=== PATIENT | female | born 1975 | race Caucasian/White ===

== ENCOUNTER 2018-09-25 14:51 | Emergency (ER) | payer SELFPAY ==
[2018-09-25 14:57] VITALS: BP 111/87; PULSE 121; RESP 22; TEMP 36.6; O2SAT 100
[2018-09-25] MEDS: Normal Saline 1,000 ML 1000 ML IV ×2 (15:10→16:24)
[2018-09-25] MEDS: Ondansetron O.D.T. 4 MG TABEF PO ×2 (15:18→18:08)
[2018-09-25 15:39] LABS: Abs Immature Grans 0.02 k/cumm (0.0-0.09); Absolute Basophil Count 0.02 k/cumm (0.0-0.2); Absolute Lymphocyte Count 0.24 k/cumm (1.2-3.4); Absolute Monocyte Count 0.25 k/cumm (0.11-0.7); Absolute Neutrophil Count 7.52 k/cumm (1.2-6.7); Basophils % 0.2; HCT 49.2 % (36.0-46.0); HGB 16.6 g/dL (12.0-15.5); Immature Grans % 0.2; Mean Corp. HGB Concentration 33.7 g/dL (32.0-36.0); Mean Corpuscular Hemoglobin 32.1 pg (27.0-33.0); Mean Corpuscular Volume 95.2 fL (80-95); Mean Platelet Volume 10.6 fL (8.0-11.0); Monocytes % 3.1; Neutrophils % 93.5; Platelet Count 368 x1000/uL (130-400); RBC 5.17 m/cumm (4.00-5.20); RBC Distribution Width 12.7 % (11.7-14.6); White Blood Cell Count 8.05 k/cumm (4.4-10.8)
--- NOTE | 2018-09-25 16:00 | ED.GENADUL_ITS ---
Discharge Plan Disposition Patient Disposition: HOME Condition: Stable Discharge Details Chief Complaint: Nausea/Vomit/Diar Clinical Impression: Nausea and vomiting Primary Care Provider: Pat Mejias ED Provider: Aureliano Ruelas Home Meds and New Rx's Prescriptions: New promethazine 25 mg tablet 25 mg PO Q6H PRN (Reason: nausea and vomiting) Qty: 30 RF: 0 ondansetron 4 mg tablet,disintegrating 4 mg PO TID PRN (Reason: nausea and vomiting) 5 Days Qty: 30 RF: 0 Continued ProAir HFA 8.5 GM HFA aerosol inhaler 2 puff Inhalation Q4H PRN PRNQty: 1 RF: 3 arm brace [Wrist Brace Medium] 1 EACH misc 1 ea Miscellaneous DAILY Qty: 1 RF: 0 Discharge Instructions Instructions: Acute Nausea and Vomiting (ED) Additional Instructions: If you have nausea/vomit take zofran. IF after an hour you still have nausea/vomit try taking the phenergan if symptoms continue by the end of the week follow up with your primary care provider return to the emergency department for chest pain, abdominal pain or persistent vomit return to the emergency department Medical Decision Making 43 yo female comes in with complaint of n/v/d since around 3am this morning. Denies recent travel, no abdominal pain. She was given zofran prior to my exam and now her nausea is better and is tolerating PO. She has no abdominal tenderness or distention on exam so do not feel imaging to evaluate for sbo, cholecystitis or other surgical pathology indicated. Has no chest pain or pressure so do not feel workup for acs indicated. Will monitor and evaluate for dehydration and electrolyte abnormalities labs initially showed anion gap acidosis with lurdes that was likely from dehydration, was given IVF and repeat metabolic panel showed improved anion gap and she is now tolerating PO. Still has no abdominal ttenderness or distention so do not feel imaging indicated. ADvised f/u with pcp and return precautions given Differential Diagnosis food related illness, viral illness, sbo Lab Data Lab results reviewed: Yes I reviewed the patient's lab results. HPI General Mode of arrival: ambulatory . Date/Time Provider Initiated Documentation: 09/25/18 15:15 . Limitations to Documentation: no limitations . Information obtained by: patient . History of Present Illness 43 year old F presents to the emergency department with the chief complaint of n/v/d, described as moderate, with intensity rated at 5. Quality is described as other (cramping), Patient started experiencing this day(s) (1) and it has been constant. No relieving factors improve symptom(s), No exacerbating factors reported . Patient notes no other symptoms.. Patient did receive the following treatments prior to arrival, none Related Data Home Medications Medication Instructions Recorded Confirmed ProAir HFA 2 puff INHALATION Q4H PRN PRN #1 08/07/17 09/25/18 inhaler arm brace [Wrist Brace Medium] #1 ea 09/21/17 ondansetron 4 mg PO TID PRN 5 Days #30 tab 09/25/18 promethazine 25 mg PO Q6H PRN #30 tab 09/25/18 Previous Rx's Medication Instructions Recorded arm brace [Wrist Brace Medium] #1 ea 09/21/17 ondansetron 4 mg PO TID PRN 5 Days #30 tab 09/25/18 promethazine 25 mg PO Q6H PRN #30 tab 09/25/18 Allergies Allergy/AdvReac Type Severity Reaction Status Date / Time lamotrigine Allergy Severe Skin Rash Unverified 09/25/18 15:02 Penicillins Allergy Unknown Hives Unverified 11/06/17 12:15 General Stated Complaint: Nausea/Vomit/Diar BRIDGET: 3 Review of Systems Review of Systems All systems reviewed & are unremarkable except as noted in HPI and below Constitutional Denies chills, Denies fever(s) and Denies weakness ENT Denies change in voice Cardiovascular Denies chest pain and Denies dyspnea Respiratory Denies cough and Denies dyspnea Gastrointestinal Denies abdominal pain Genitourinary Denies dysuria Integumentary/Breasts Denies rash Neurologic Denies weakness Psychiatric Denies depression [facility] Medical History Depression Surgical History Ligation of fallopian tube Family History Mother No problems noted. Father Diabetes Sister Personal history of malignant neoplasm Grandmother No problems noted. Other Alcohol abuse Social History Smoking/Tobacco Use Status: Current every day Exam Const General: no acute distress Orientation: alert HENMT Head: normal to inspection Ears: external ears normal General nose exam: external nose normal Mouth: moist mucous membranes Eyes General: appearance normal, both eyes and all related structures Neck Neck: normal visual inspection Resp Effort & Inspection: normal respiratory effort and able to speak in complete sentences Cardio Rate: regular rate GI Palpation: soft Skin General skin exam: no rashes or lesions noted Neuro General: alert and oriented x3 Extrem General: normal to inspection Psych Mental Status: mental status grossly normal Course Vital Signs Temperature 36.6 C 09/25/18 14:57 Pulse 121 H 09/25/18 14:57 Respiratory Rate 22 09/25/18 14:57 Blood Pressure 111/87 09/25/18 14:57 Pulse Oximetry 100 09/25/18 14:57 Temperature 36.6 C 09/25/18 14:57 Temperature Source Temporal Artery Scan 09/25/18 14:57 Pulse 121 H 09/25/18 14:57 Respiratory Rate 22 09/25/18 14:57 Respiratory Effort Non-Labored 09/25/18 15:01 Blood Pressure 111/87 09/25/18 14:57 Blood Pressure Position Sitting 09/25/18 14:57 Pulse Oximetry 100 09/25/18 14:57 Oxygen Delivery Method Room Air 09/25/18 14:57 Oxygen Flow Rate 0 09/25/18 14:57 Pain Level 7 09/25/18 14:57 Lab/Test Results Lab/Test Results: Laboratory Tests Range/Units 09/25/18 14:10 WBC (4.4-10.8) k/cumm 8.05 RBC (4.00-5.20) m/cumm 5.17 Hgb (12.0-15.5) g/dL 16.6 H Hct (36.0-46.0) % 49.2 H MCV (80-95) fL 95.2 H MCH (27.0-33.0) pg 32.1 MCHC (32.0-36.0) g/dL 33.7 RDW (11.7-14.6) % 12.7 Plt Count (130-400) x1000/uL 368 MPV (8.0-11.0) fL 10.6 Immature Gran % 0.2 Neutrophils % 93.5 Lymphocytes % 3.0 Monocytes % 3.1 Eosinophils % 0.0 Basophils % 0.2 Absolute Neutrophils (1.2-6.7) k/cumm 7.52 H Absolute Lymphocytes (1.2-3.4) k/cumm 0.24 L Absolute Monocytes (0.11-0.7) k/cumm 0.25 Absolute Eosinophils (0.0-0.7) k/cumm 0.00 Absolute Basophils (0.0-0.2) k/cumm 0.02
[2018-09-25 16:02] LABS: ALT 23 U/L (12-78); AST 21 U/L (15-37); Albumin 3.9 g/dL (3.4-5.0); Alkaline Phosphatase 65 U/L (46-116); Anion Gap 16.3 mmol/L (3-11); BUN 22 mg/dL (7-18); Bilirubin, Total 1.8 mg/dL (0.2-1.0); CO2 23.7 mmol/L (21.0-32.0); CREATININE 1.84 mg/dL (0.55-1.02); Chloride 95 mmol/L (98-107); Estimated GFR 29.66 (mL/min/1.73m2); Glucose 137 mg/dL (70-100); Lipase 47 U/L (73-393); Potassium 4.4 mmol/L (3.5-5.1); Sodium 135 mmol/L (136-145)
[2018-09-25 16:19] LABS: Calcium 9.8 mg/dL (8.5-10.1)
[2018-09-25 17:41] LABS: Anion Gap 10.6 mmol/L (3-11); BUN 20 mg/dL (7-18); CO2 25.4 mmol/L (21.0-32.0); CREATININE 1.54 mg/dL (0.55-1.02); Calcium 7.8 mg/dL (8.5-10.1); Chloride 102 mmol/L (98-107); Estimated GFR 36.43 (mL/min/1.73m2); Glucose 107 mg/dL (70-100); Potassium 4.3 mmol/L (3.5-5.1); Sodium 138 mmol/L (136-145)
[2018-09-25] MEDS: Promethazine 25 MG TAB PO (18:09)
[2018-09-25 18:17] VITALS: BP 123/72; PULSE 92; RESP 18; TEMP 36.7; O2SAT 99
== END 2018-09-25 18:20 | disposition home or self-care (01) ==
PROVIDERS: Emergency Provider Emergency Medicine; PCP Nurse Practitioner Family
DX: R11.2 Nausea with vomiting, unspecified (principal)
CPT/HCPCS: 36415; 80048; 80053; 83690; 96361; 96365; 99284; 85025

== ENCOUNTER 2019-05-13 07:15 | Emergency (ER) | payer OTHER, SELFPAY ==
[2019-05-13] VITALS (17 sets, daily range): BP systolic 85–107; BP diastolic 47–72; PULSE 85–110; RESP 14–18; TEMP 36.3–37.5; O2SAT 95–99
[2019-05-13] MEDS: Ketorolac 30 MG/ML VIAL IVP (07:41)
[2019-05-13] MEDS: Normal Saline 1,000 ML 1000 ML IV ×2 (07:41→08:20)
--- NOTE | 2019-05-13 07:41 | ED.GENADUL_ITS ---
Discharge Plan Disposition Patient Disposition: HOME Condition: Improving Discharge Details Chief Complaint: GenMedical Clinical Impression: Vomiting Primary Care Provider: Pat Mejias ED Provider: Charanjit Irizarry Home Meds and New Rx's Prescriptions: New ondansetron HCl [Zofran] 4 mg tablet 4 mg PO QID PRN (Reason: Nausea) Qty: 10 RF: 0 Continued ProAir HFA 8.5 GM HFA aerosol inhaler 2 puff Inhalation Q4H PRN PRNQty: 1 RF: 3 (DME) arm brace [Wrist Brace Medium] 1 EACH misc 1 ea Miscellaneous DAILY Qty: 1 RF: 0 promethazine 25 mg tablet 25 mg PO Q6H PRN (Reason: nausea and vomiting) Qty: 30 RF: 0 Discharge Instructions Instructions: Acute Nausea and Vomiting (ED) Additional Instructions: Home to rest today. Small, frequent sips of fluids and/or popsicles so that she may maintain hydration. May use the prescribed Zofran if needed for nausea. Slowly progress diet beginning with bland foods. Return if you develop high fever, persistent vomiting, or any other acute concerns. May use Tylenol if needed for aches and pains. Medical Decision Making 43-year-old female presents from home with hours of nausea, vomiting, poor tolerance of p.o., feeling dehydrated, now with associated frontal headache. She has not had a fever, denies travel or suspicious food contacts. She states her boyfriend has a head cold. She is anxious, dehydrated in appearance, mildly tachycardic with otherwise normal vital signs. Her differential diagnosis would include a viral syndrome, cyclic vomiting, she does have a history of migraine headaches. Must exclude intracranial hemorrhage or mass. Patient referred for CT scan of the head, underwent laboratory testing, received parenteral fluids and medications. Labs are unremarkable for acute process. CT head without acute intracranial f indings and reviewed with Dr Reyes. Patient subjectively better and improving with ability to take po. Consistent with probable viral illness/abdominal migraine. She is improving with treatment for same. She will require antibiotic for home I believe and I will prescribe her Zofran to use as needed. She is stable for discharge outpatient trial at this time. She does understand return precautions which I reviewed with her. Lab Data Lab results reviewed: Yes I reviewed the patient's lab results. Labs: Laboratory Results - last 24 hr 05/13/19 05/13/19 07:40 07:40 WBC 8.76 RBC 4.49 Hgb 14.5 Hct 43.0 MCV 95.8 H MCH 32.3 MCHC 33.7 RDW 12.4 Plt Count 451 H MPV 9.7 Immature Gran % 0.2 Neutrophils % 86.8 Lymphocytes % 6.3 Monocytes % 5.1 Eosinophils % 1.1 Basophils % 0.5 Absolute Neutrophils 7.60 H Absolute Lymphocytes 0.55 L Absolute Monocytes 0.45 Absolute Eosinophils 0.10 Absolute Basophils 0.04 Sodium 140 Potassium 3.8 Chloride 102 Carbon Dioxide 27.2 Anion Gap 10.8 BUN 6 L Creatinine 1.13 H Estimated GFR/1.73 m2 52.07 Glucose 107 H Calcium 9.2 Magnesium 1.8 Total Bilirubin 0.8 AST 24 ALT 33 Alkaline Phosphatase 66 Total Protein 8.1 Albumin 4.1 Lipase 107 HPI General Mode of arrival: ambulatory . Date/Time Provider Initiated Documentation: 05/13/19 07:24 . Limitations to Documentation: no limitations . Information obtained by: patient . History of Present Illness 43 year old F presents to the emergency department with the chief complaint of Nausea and vomiting with feeling of dehydration and headache for hours , Quality is described as dull and constant, and is localized to the head. Patient reports no radiation. Patient started experiencing this hour(s) and it has been constant. Eating worsens symptoms . Patient notes headaches, loss of appetite, malaise and nausea/vomiting; denies shortness of breath. Patient did receive the following treatments prior to arrival, none Related Data Home Medications Medication Instructions Recorded Confirmed ProAir HFA 2 puff INHALATION Q4H PRN PRN #1 08/07/17 09/25/18 inhaler arm brace [Wrist Brace Medium] #1 ea 09/21/17 promethazine 25 mg PO Q6H PRN #30 tab 09/25/18 ondansetron HCl [Zofran] 4 mg PO QID PRN #10 tab 05/13/19 Previous Rx's Medication Instructions Recorded arm brace [Wrist Brace Medium] #1 ea 09/21/17 promethazine 25 mg PO Q6H PRN #30 tab 09/25/18 ondansetron HCl [Zofran] 4 mg PO QID PRN #10 tab 09/23/19 Allergies Allergy/AdvReac Type Severity Reaction Status Date / Time lamotrigine Allergy Severe Skin Rash Unverified 05/13/19 07:23 Penicillins Allergy Unknown Hives Unverified 05/13/19 07:23 General Stated Complaint: GenMedical BRIDGET: 3 Review of Systems Review of Systems Narrative: 6 systems reviewed otherwise negative [facility] Medical History Depression Surgical History Ligation of fallopian tube Family History Mother No problems noted. Father Diabetes Sister Personal history of malignant neoplasm Grandmother No problems noted. Other Alcohol abuse Social History Smoking/Tobacco Use Status: Current every day Tobacco Type: cigarettes Alcohol Intake: current Alcohol Intake frequency: a few times a week Drug use: Occasionally Substance use type: marijuana Do you feel safe at home: Yes Do you feel safe in your relationship?: Yes Exam Narrative Exam Narrative: GEN: awake, alert, oriented 3. Pleasant, well groomed, in mild distress. HEAD: Normocephalic, atraumatic ENT: Mucous membranes dry, oropharynx unremarkable, External ear exam unremarkable EYES: PERRL, EOMI NECK: Full ROM, no FELICIA, no menigismus CHEST/RESP: Nontender, clear to auscultation bilateral, no wheeze/rhonchi/rales CARDIOVASCULAR: Regular, tachycardic, no murmur, rub dean. 2+ Rad pulse bilateral ABDOMEN: Soft, nontender, no mass. +Bowel sounds EXT: Full ROM, no edema, no rash Neuro: Grossly normal neurologic exam, conversant, interactive. Psych: Speech fluent, thoughts congruent, affect anxious Course Vital Signs Vital signs: Vital Signs Temperature 37.5 C 05/13/19 07:19 Pulse 110 H 05/13/19 07:19 Respiratory Rate 18 05/13/19 07:19 Blood Pressure 107/72 05/13/19 07:19 Pulse Oximetry 99 05/13/19 07:19 Temperature 37.5 C 05/13/19 07:19 Temperature Source Skin 05/13/19 07:19 Pulse 110 H 09/23/19 07:19 Respiratory Rate 18 05/13/19 07:19 Respiratory Effort Non-Labored 05/13/19 07:22 Blood Pressure 107/72 05/13/19 07:19 Blood Pressure Position Sitting 05/13/19 07:19 Pulse Oximetry 99 05/13/19 07:19 Oxygen Delivery Method Room Air 05/13/19 07:19 Oxygen Flow Rate 0 05/13/19 07:19
[2019-05-13] MEDS: Ondansetron 4 MG/2 ML VIAL IVP (07:42)
[2019-05-13 07:51] LABS: Abs Immature Grans 0.02 k/cumm (0.0-0.09); Absolute Basophil Count 0.04 k/cumm (0.0-0.2); Absolute Lymphocyte Count 0.55 k/cumm (1.2-3.4); Absolute Monocyte Count 0.45 k/cumm (0.11-0.7); Basophils % 0.5; Eosinophils % 1.1; HGB 14.5 g/dL (12.0-15.5); Immature Grans % 0.2; Lymphocytes % 6.3; Mean Corp. HGB Concentration 33.7 g/dL (32.0-36.0); Mean Corpuscular Hemoglobin 32.3 pg (27.0-33.0); Mean Corpuscular Volume 95.8 fL (80-95); Mean Platelet Volume 9.7 fL (8.0-11.0); Monocytes % 5.1; Neutrophils % 86.8; Platelet Count 451 x1000/uL (130-400); RBC 4.49 m/cumm (4.00-5.20); RBC Distribution Width 12.4 % (11.7-14.6); White Blood Cell Count 8.76 k/cumm (4.4-10.8)
--- NOTE | 2019-05-13 08:05 | DI.CT_ITS ---
EXAM: CT HEAD WO CLINICAL HISTORY: SÁNCHEZ, vomiting. TECHNIQUE: The exam was performed according to the usual protocol without contrast. FINDINGS: There is no evidence of an intra or extra-axial hemorrhage. There is no mass. The garcia-white matter d ifferentiation is maintained. The ventricles are unremarkable. There is no evidence of a skull frac ture. The paranasal sinuses are intact. There is no evidence of a mastoid effusion. IMPRESSION: There is no evidence of an acute intra cerebral abnormality.
[2019-05-13 08:13] LABS: ALT 33 U/L (14-59); AST 24 U/L (15-37); Albumin 4.1 g/dL (3.4-5.0); Alkaline Phosphatase 66 U/L (46-116); Anion Gap 10.8 mmol/L (3-11); BUN 6 mg/dL (7-18); Bilirubin, Total 0.8 mg/dL (0.2-1.0); CO2 27.2 mmol/L (21.0-32.0); CREATININE 1.13 mg/dL (0.55-1.02); Calcium 9.2 mg/dL (8.5-10.1); Chloride 102 mmol/L (98-107); Estimated GFR 52.07 (mL/min/1.73m2); Glucose 107 mg/dL (70-100); Lipase 107 U/L (73-393); Magnesium 1.8 mg/dL (1.8-2.4); Potassium 3.8 mmol/L (3.5-5.1); Sodium 140 mmol/L (136-145); Total Protein 8.1 g/dL (6.4-8.2)
[2019-05-13] MEDS: Ondansetron O.D.T. 4 MG TABEF, 3 TABS/BTL PO (10:14)
== END 2019-05-13 10:26 | disposition home or self-care (01) ==
PROVIDERS: Emergency Provider Emergency Medicine; PCP Nurse Practitioner Family
DX: R11.0 Nausea (principal); R51 Headache; R00.0 Tachycardia, unspecified
CPT/HCPCS: 36415; 80053; 83690; 96361; 96365; 96375; 99284; 70450; 83735; 85025; J1885; J2405

== ENCOUNTER 2019-05-15 15:05 | Outpatient (REF) | payer OTHER, SELFPAY | END 2019-05-15 15:25 | LOC: LBN 15:05 | PROVIDERS: PCP Nurse Practitioner Family; Referring Provider Nurse Practitioner Family; Visit Provider Nurse Practitioner Family | DX: M54.9 Dorsalgia, unspecified (principal) | CPT/HCPCS: 87086 ==

== ENCOUNTER 2019-05-15 15:07 | Outpatient (CLI) | payer OTHER, SELFPAY ==
[2019-05-15 16:04] LABS: Abs Immature Grans 0.01 k/cumm (0.0-0.09); Absolute Basophil Count 0.03 k/cumm (0.0-0.2); Absolute Eosinophil Count 0.04 k/cumm (0.0-0.7); Absolute Monocyte Count 0.35 k/cumm (0.11-0.7); Absolute Neutrophil Count 1.55 k/cumm (1.2-6.7); Basophils % 0.9; Eosinophils % 1.3; HCT 40.3 % (36.0-46.0); HGB 13.8 g/dL (12.0-15.5); Immature Grans % 0.3; Lymphocytes % 37.7; Mean Corp. HGB Concentration 34.2 g/dL (32.0-36.0); Mean Corpuscular Hemoglobin 32.6 pg (27.0-33.0); Mean Corpuscular Volume 95.3 fL (80-95); Neutrophils % 48.8; Platelet Count 315 x1000/uL (130-400); RBC 4.23 m/cumm (4.00-5.20); RBC Distribution Width 12.1 % (11.7-14.6); White Blood Cell Count 3.18 k/cumm (4.4-10.8)
[2019-05-15 17:50] LABS: ALT 24 U/L (14-59); AST 21 U/L (15-37); Albumin 3.4 g/dL (3.4-5.0); Alkaline Phosphatase 51 U/L (46-116); Anion Gap 16.1 mmol/L (3-11); BUN 14 mg/dL (7-18); Bilirubin, Total 0.4 mg/dL (0.2-1.0); CO2 18.9 mmol/L (21.0-32.0); CREATININE 0.92 mg/dL (0.55-1.02); Calcium 8.5 mg/dL (8.5-10.1); Chloride 100 mmol/L (98-107); Glucose 79 mg/dL (70-100); Lipase 76 U/L (73-393); Potassium 3.9 mmol/L (3.5-5.1); Sodium 135 mmol/L (136-145); Total Protein 6.8 g/dL (6.4-8.2)
== END 2019-05-15 15:27 ==
PROVIDERS: PCP Nurse Practitioner Family; Visit Provider Nurse Practitioner Family
DX: R11.2 Nausea with vomiting, unspecified (principal); M54.9 Dorsalgia, unspecified
CPT/HCPCS: 36415; 80053; 83690; 85025; 87086

== ENCOUNTER 2019-05-28 01:42 | Outpatient (CLI) | payer OTHER, SELFPAY ==
--- NOTE | 2019-05-28 09:26 | DI.CT_ITS ---
EXAM: CT ABDOMEN PELVIS WO/W CLINICAL HISTORY: microscopic hematuria, bilateral low back pain, nausea and vomiting. TECHNIQUE: Without oral contrast. Before and after IV contrast including urogram. COMPARISON: No exams were available for comparison FINDINGS: There is no evidence of urinary tract calculi or hydronephrosis. The kidneys are normal in size. No masses or perinephric collections are seen. There is symmetric renal enhancement. There are no col lecting system filling defects. No bladder mass or wall thickening is seen. The heart size is normal. The lung bases are clear. A few small liver cysts are noted. The gallblad vee, spleen, adrenals and pancreas are unremarkable. There is no bowel dilatation or inflammatory ch justine. The uterus and ovaries are unremarkable. IMPRESSION: Negative CT of the abdomen and pelvis. No evidence of urinary tract calculi, hydronephrosis or mass.
[2019-05-28] MEDS: Omnipaque 350 MG/ML 100 ML BTL IJ (09:29)
[2019-05-28] MEDS: Normal Saline Flush 10 ML SYR IVP (09:30)
== END 2019-05-28 02:02 ==
PROVIDERS: PCP Nurse Practitioner Family; Visit Provider Nurse Practitioner Family
DX: R31.29 Other microscopic hematuria (principal); R11.2 Nausea with vomiting, unspecified; M54.5 Low back pain; K76.89 Other specified diseases of liver
CPT/HCPCS: 74178; J3490

== ENCOUNTER 2019-07-23 18:15 | Emergency (ER) | payer OTHER, SELFPAY ==
[2019-07-23 18:21] VITALS: BP 144/92; PULSE 93; RESP 20; TEMP 36.6; O2SAT 98
--- NOTE | 2019-07-23 18:58 | ED.GENADUL_ITS ---
Discharge Plan Disposition Patient Disposition: HOME Condition: Stable Discharge Details Chief Complaint: Trauma Clinical Impression: Contusion of left knee, Laceration of left knee Primary Care Provider: Pat Mejias ED Provider: Jocelynn Nunez Home Meds and New Rx's Prescriptions: Continued albuterol sulfate [ProAir HFA] 8.5 GM HFA aerosol inhaler 2 puff Inhalation Q4H PRN PRNQty: 1 RF: 3 (DME) Wrist Brace Medium 1 EACH misc 1 ea Miscellaneous DAILY Qty: 1 RF: 0 Discharge Instructions Instructions: Laceration (ED), Contusion in Adults (ED) Additional Instructions: Rest, ice, and elevate your left leg as much as possible. If you do not have any worsening knee pain or swelling, continue to wear the Lavell wrap. Keep wound clean and dry. Cover with topical antibiotic ointment if you develop any worsening pain, redness or swelling. Cover the wound if risk of contamination, otherwise you can keep open to air to allow the edges to heal and dry. Alternate Tylenol and Motrin as needed and directed for pain. Follow-up with the primary care doctor within the next week for reevaluation as needed. Return to the emergency department if you develop any worsening or new concerning symptoms. Discharge Data Discharge Physician: Jocelynn Nunez Medical Decision Making 43-year-old female presents with left knee pain status post fall down 7-10 stairs at home 1 hour prior to arrival. Patient states she tripped over her dog and hit her left knee and had on the door. She denies LOC, vomiting, headache, neck pain, back pain, chest pain, abdominal pain or other extremity pain. Tetanus up-to-date 2014. She has not taken any meds prior to arrival. There is a 3 cm C-shaped flap laceration noted to left anterior knee with pain w ith range of motion. No obvious deformity noted. Lungs clear, abdomen soft nontender. Normal range of motion of remainder of extremities without deformity. No focal deficits. Dose of ibuprofen given. Left knee x-ray negative. Wound was irrigated and Steri-Strips, bacitracin, dressing and Lavell wrap placed. Patient requested crutches. She is advised to rest, ice, elevate, alternate Tylenol and Motrin. She is advised to follow-up with her primary care doctor as needed and return here with any concerns. Medical Records Medical records reviewed: Yes I reviewed the patient's medical records. Imaging Data Radiologic Study: Radiologist's impression: XR Left Knee Exam date and time: 07/23/2019 7:15 PM Age: 43 years old Clinical history: Other: S/P fall onto L knee, R/O acute fracture, abrasion/laceration anterior knee; Patient HX: S/P fall onto L knee, R/O acute fracture, abrasion/laceration anterior knee TECHNIQUE: Imaging protocol: XR Left knee. Views: 4 or more views. COMPARISON: No relevant prior studies available. FINDINGS: Bones/joints: There is no evidence of acute fracture.There is no evidence of malalignment or dislocation. Soft tissues: Normal. IMPRESSION: There is no evidence of acute fracture.There is no evidence of malalignment or dislocation. HPI General Mode of arrival: ambulatory . Date/Time Provider Initiated Documentation: 07/23/19 18:22 . Limitations to Documentation: no limitations . Information obtained by: patient . History of Present Illness 43 year old F pr esents to the emergency department with the chief complaint of Left knee pain status post fall, and is localized to the lower extremity (Left knee). Patient extremity (Radiation to left thigh and down to left upper leg). Patient started experiencing this hour(s) (1) and it has been constant. No relieving factors improve symptom(s), Movement worsens symptoms . Patient notes denies confusion, chest pain, cough, diaphoresis, fever/chills, headaches, loss of appetite, malaise, nausea/vomiting, rash, seizure, shortness of breath, syncope and weakness. Patient did receive the following treatments prior to arrival, none Related Data Home Medications Medication Instructions Recorded Confirmed albuterol sulfate [ProAir HFA] 2 puff INHALATION Q4H PRN PRN #1 08/07/17 07/23/19 inhaler Wrist Brace Medium #1 ea 09/21/17 Previous Rx's Medication Instructions Recorded Wrist Brace Medium #1 ea 09/21/17 Allergies Allergy/AdvReac Type Severity Reaction Status Date / Time lamotrigine Allergy Severe Skin Rash Unverified 07/23/19 18:23 Penicillins Allergy Unknown Hives Unverified 07/23/19 18:23 General Stated Complaint: Trauma BRIDGET: 3 Review of Systems All systems reviewed & are unremarkable except as noted in HPI and below Constitutional Constitutional: Reports as per HPI, Denies chills and Denies fever(s) Eyes Eyes: Denies blurry vision ENT Ears, Nose, Mouth, and Throat: Denies dizziness, Denies sore throat and Denies throat swelling Cardiovascular Cardiovascular: Denies chest pain and Denies dyspnea Respiratory Respiratory: Denies cough and Denies dyspnea Gastrointestinal Gastrointestinal: Denies abdominal pain, Denies diarrhea and Denies vomiting Genitourinary Genitourinary: Denies hematuria and Denies dysuria Musculoskeletal Musculoskeletal: Denies back pain and Denies numbness Integumentary/Breasts Skin/Breast: Denies lesions and Denies rash Neurologic Neurologic: Denies dizziness, Denies focal weakness and Denies numbness Allergic/Immunologic Allergic/Immunologic: Denies throat swelling [facility] Medical History Depression (Inactive) Tobacco use disorder (Acute) Surgical History Ligation of fallopian tube Family History Mother No problems noted. Father Diabetes Sister Personal history of malignant neoplasm Grandmother No problems noted. Other Alcohol abuse Social History Smoking/Tobacco Use Status: Current every day Tobacco Type: cigarettes Alcohol Intake: current Alcohol Intake frequency: a few times a week Drug use: Socially Substance use type: marijuana Do you feel safe at home: Yes Do you feel safe in your relationship?: Yes Exam Const General: cooperative and healthy appearing Orientation: alert and awake [facility] Head: normal to inspection Head images: 1. 1 x 1 cm minimally raised tender skin colored contusion without open wounds or ecchymosis. No step-off. Ears: hearing grossly normal bilaterally, external ears normal and TM's normal bilaterally General nose exam: external nose normal Face and sinus: normal facial exam Mouth: oral mucosae normal Teeth and gingiva: dentition normal Throat: posterior oropharynx normal Eyes General: appearance normal, both eyes and all related structures Eyelids: eyelids normal Pupils: PERRL EOM: EOM intact bilaterally Neck Neck: normal visual inspection Lymphatic: no lymphadenopathy noted Chest Chest: normal inspection of the chest, normal palpation of entire chest wall and no tenderness Resp Effort & Inspection: normal respiratory effort and able to speak in complete sentences Auscultation: clear to auscultation bilaterally Cardio Rate: regular rate Rhythm: regular rhythm GI Inspection: normal to inspection and no abdominal wall ecchymosis Palpation: soft, not firm, no guarding, no hepatosplenomegaly, no masses and nontender Auscultation: normal bowel sounds Back/Spine/Pelvis Back: no CVA tenderness Cervical Spine: No cervical spinal tenderness Thoracic/Lumbar Spine: No thoracic spinal tenderness and No lumbar spinal tenderness Skin General skin exam: no rashes or lesions noted Neuro General: alert and awake Cognition: normal cognition Speech: speech normal Gait: normal gait Motor: muscle tone normal throughout Sensory Exam: no sensory deficits noted Extrem General: normal to inspection, full ROM and normal capillary refill Other: Left anterior knee with 3 cm C-shaped skin flap/skin tear. Surrounding superficial abrasions. Pain with range of motion of left knee. No obvious ligamentous instability. Negative anterior posterior drawer test. Some pain with valgus and varus stress. No pain with range of motion of bilateral upper extremities, right lower extremity or left hip/ankle. Psych Appearance: grossly normal Mental Status: mental status grossly normal Speech and Movement: speech and movement normal Affect: normal affect Thought Process: normal Course Vital Signs Vital signs: Vital Signs Temperature 97.9 F 07/23/19 18:21 Pulse 93 H 07/23/19 18:21 Respiratory Rate 20 07/23/19 18:21 Blood Pressure 144/92 H 07/23/19 18:21 Pulse Oximetry 98 07/23/19 18:21 Temperature 97.9 F 07/23/19 18:21 Temperature Source Skin 07/23/19 18:21 Pulse 93 H 07/23/19 18:21 Respiratory Rate 20 07/23/19 18:21 Respiratory Effort Non-Labored 07/23/19 18:24 Blood Pressure 144/92 H 07/23/19 18:21 Blood Pressure Position Sitting 07/23/19 18:21 Pulse Oximetry 98 07/23/19 18:21 Oxygen Delivery Method Room Air 07/23/19 18:21 Oxygen Flow Rate 0 07/23/19 18:21 Pain Level 8 07/23/19 18:21
--- NOTE | 2019-07-23 19:08 | DI.RAD_ITS ---
EXAM: XR KNEE LT 4V AP,LAT,FLOR,PAT INDICATION: s/p fall onto L knee, r/o acute fracture,abrasion, laceration COMPARISON: No exams were available for comparison TECHNIQUE: 2D digital imaging was performed. FINDINGS: No fracture or joint effusion is seen. The joint spaces are well maintained. There are no significa nt degenerative changes. IMPRESSION: Negative left knee.
--- NOTE | 2019-07-23 19:25 | DI.VRAD_ITS ---
PROCEDURE INFORMATION: Exam: XR Left Knee Exam date and time: 07/23/2019 7:15 PM Age: 43 years old Clinical history: Other: S/P fall onto L knee, R/O acute fracture, abrasion/laceration anterior knee; Patient HX: S/P fall onto L knee, R/O acute fracture, abrasion/laceration anterior knee TECHNIQUE: Imaging protocol: XR Left knee. Views: 4 or more views. COMPARISON: No relevant prior studies available. FINDINGS: Bones/joints: There is no evidence of acute fracture.There is no evidence of malalignment or dislocation. Soft tissues: Normal. IMPRESSION: There is no evidence of acute fracture.There is no evidence of malalignment or dislocation. Dictated and Authenticated by: Becky Reddy MD. Ordering:KAYLEEN Cabezas MD
== END 2019-07-23 20:10 | disposition home or self-care (01) ==
PROVIDERS: Emergency Provider Physician Assistant; PCP Nurse Practitioner Family
DX: S81.012A Laceration without foreign body, left knee, initial encounter (principal); W10.8XXA Fall (on) (from) other stairs and steps, initial encounter
CPT/HCPCS: 99283; 73564; E0114

== ENCOUNTER 2019-10-10 11:38 | Outpatient (CLI) | payer OTHER, SELFPAY ==
--- NOTE | 2019-10-10 12:30 | DI.RAD_ITS ---
EXAM: XR CHEST 2V PA LATERAL CLINICAL HISTORY: r/o acute process R05 COUGH TECHNIQUE: 2D digital imaging was performed. COMPARISON: CHEST 2 VIEWS PA,LAT from 04/18/2017 FINDINGS: The cardiac and mediastinal contours have a normal appearance. The lungs are well inflated and clear . No infiltrate, effusion or pneumothorax is seen. No spine or rib fracture is identified. IMPRESSION: Negative chest x-ray.
== END 2019-10-10 11:58 ==
PROVIDERS: PCP Nurse Practitioner Family; Visit Provider Nurse Practitioner Adult Health
DX: R05 Cough (principal)
CPT/HCPCS: 71046

== ENCOUNTER 2020-11-25 15:13 | Outpatient (REF) | payer MEDICAID, SELFPAY ==
--- NOTE | 2020-11-25 14:40 | PAPFT_PTH ---
PATIENT: Toshia Ballesteros LOC: [facility] U#:[id number] AGE/SX: 45/F ROOM: RE11/25/[address]: Kymberly Sandoval APRN : 1975 BED: DIS: 11/25/2020 SPEC #: [id number] RECD: 11/26/20 12:47 STATUS: RENETTA REQ #: [id number] REECE: 11/25/20 14:[address]: Kymberly Sandoval DEPT: [facility] Cytology RECD BY: Chen Sutton Tissues: 1 - CX/ENDOCX FOR PAP SMEARS Procedures: PAP THIN PREP/UVM Screening HPV DNA PROBE Comments: [id number]
== END 2020-11-25 15:14 | disposition home or self-care (01) ==
LOC: LBN 15:13
PROVIDERS: PCP Nurse Practitioner Adult Health; Referring Provider Nurse Practitioner Adult Health; Visit Provider Nurse Practitioner Adult Health
DX: Z12.4 Encounter for screening for malignant neoplasm of cervix (principal); Z11.51 Encounter for screening for human papillomavirus (HPV); R87.810 Cervical high risk human papillomavirus (HPV) DNA test positive
CPT/HCPCS: 88142; 87624

== ENCOUNTER 2021-02-28 14:24 | Emergency (ER) | payer MEDICAID, SELFPAY ==
[2021-02-28 14:30] VITALS: BP 130/78; PULSE 87; RESP 16; TEMP 36; O2SAT 98
[2021-02-28] MEDS: Lidocaine 2% Viscous 15 ML CUP PO (15:01)
[2021-02-28] MEDS: Clindamycin 300 MG CAP PO (15:01)
--- NOTE | 2021-02-28 15:26 | W.ED.GENAD ---
Discharge Plan Disposition Patient Disposition: HOME Condition: Stable Discharge Details Clinical Impression: Dental infection Primary Care Provider: Kymberly Sandoval ED Provider: Jarred An Home Meds and New Rx's Prescriptions: New clindamycin HCl 300 mg capsule 300 mg PO TID 10 Days Qty: 30 RF: 0 Continued fluticasone propionate [Flonase Allergy Relief] 50 mcg/actuation spray,suspension 1 spray CRYS DAILY Qty: 9.9 RF: 0 albuterol sulfate [ProAir HFA] 90 mcg/actuation HFA aerosol inhaler 2 puff Inhalation Q4H PRN Qty: 1 RF: 1 Discharge Instructions Instructions: Dental Abscess (ED) Additional Instructions: Clindamycin as directed. [id number] Tylenol and/or Motrin as directed for discomfort. Cool and/or warm compresses every 2 hours for 20 minutes. Please watch for new or worsening symptoms and return to the ER for any concerns. I would like you to reach out to the dentist on the dental list provided tomorrow during business hours and follow-up with you can ever see you the fastest. Discharge Data Discharge Date/Time-TO BE ENTERED AT DEPARTURE: 02/28/21 15:47 Medical Decision Making 45-year-old female presents with acute on chronic dental pain. Mild swelling and tenderness, likely infected, will initiate clindamycin therapy given her penicillin allergy. Patient declines dental block. Is agreeable to topical viscous lidocaine and I will place a temporary filling. Upon reevaluation patient reports significant improvement of her discomfort with the topical viscous lidocaine. Able to place temporary filling without difficulty. Patient tolerated well. Standard discharge and return precautions given. I will also provide her with the local dental list to help her attempt to reach all local resources for outpatient reevaluation. Medical Records Medical records reviewed: Yes I reviewed the patient's medical records. HPI General Mode of arrival: ambulatory. Date/Time Provider Initiated Documentation: 02/28/21 14:28. Limitations to Documentation: no limitations. Information obtained by: patient. HPI Narrative: This is a 45-year-old female, current smoker, presenting complaining of right lower dental pain. Patient states that approximately 1 year ago her filling fell out she has had mild intermittent discomfort. Now over the past couple of weeks she has had increasing constant pain, and mild facial swelling. Patient unable to be seen by dentist in a timely fashion. Scheduled to see her primary care provider on Monday who comes to the ER today complaining of increased pain and requesting antibiotic therapy. Denies any other concerns or complaints. Taking [id number] medication with mild relief. Related Data Home Medications Medication Instructions Recorded Confirmed albuterol sulfate 90 mcg/actuation 2 puff INHALATION Q4H PRN #1 07/30/19 02/28/21 aerosol inhaler inhaler fluticasone propionate 50 1 spray CRYS DAILY #9.9 ml 10/10/19 02/28/21 mcg/actuation nasal spray,suspension clindamycin HCl 300 mg PO TID 10 Days #30 cap 02/28/21 Previous Rx's Medication Instructions Recorded albuterol sulfate 90 mcg/actuation 2 puff INHALATION Q4H PRN #1 07/30/19 aerosol inhaler inhaler fluticasone propionate 50 1 spray CRYS DAILY #9.9 ml 10/10/19 mcg/actuation nasal spray,suspension clindamycin HCl 300 mg PO TID 10 Days #30 cap 02/28/21 Allergies Allergy/AdvReac Type Severity Reaction Status Date / Time lamotrigine Allergy Severe Skin Rash Verified 02/28/21 14:34 Penicillins Allergy Unknown Hives Verified 02/28/21 14:34 General Stated Complaint: DentalOral BRIDGET: 4 Review of Systems Constitutional Constitutional: Denies fever(s) and Denies headache(s) ENT Ears, Nose, Mouth, and Throat: Denies headache(s), Denies neck pain and Denies sore throat Respiratory Respiratory: Denies cough Musculoskeletal Musculoskeletal: Denies neck pain Integumentary/Breasts Skin/Breast: Denies erythema Neurologic Neurologic: Denies headache(s) [facility] Medical History Depression HPV test positive Repeat pap/HPV 2021 Tobacco use disorder Surgical History History of carpal tunnel release R Ligation of fallopian tube Family History Father Diabetes Sister Personal history of malignant neoplasm Other Alcohol abuse Social History Smoking/Tobacco Use Status: Current every day Tobacco Type: cigarettes Quit status: considering quitting Smoking risk assessment performed?: Yes Alcohol Intake: current Alcohol Intake frequency: a few times a week Drug use: Occasionally Substance use type: marijuana Household members: significant other Housing: apartment Communication Needs: Corrective Lenses Do you need help understanding health information?: Never Pets and animals: Yes (2) Pets and animals: dog(s) What is your relationship status?: living with partner How often do you talk on the phone with friends or family?: three or more times per week How often do you get together with friends or relatives?: three or more times per week How often do you attend anabaptism or hindu services?: 1-3 times per year Do you belong to any clubs or organized social groups?: no Panel score (0-1 are the most socially isolated patients): 2 What type of physical activity do you participate in: none [place]/Pentecostalism: Latter-Day Special adelaide needs: No Seatbelt use: sometimes Drive intox or ride w/intox non emergency services ambulance driver: No Do you feel safe at home: Yes Do you feel safe in your relationship?: Yes Exam Const General: cooperative, healthy appearing and no acute distress Orientation: alert and awake HENWA Head: normal to inspection, normocephalic and atraumatic Ears: external ears normal, TM's normal bilaterally and EAC's normal General nose exam: external nose normal Face images: 1. Diffuse mild swelling and tenderness without induration or fluctuance. No erythema. No pointing abscess. No evidence of trismus. Mouth: oral mucosae normal and moist mucous membranes Teeth image: 1. There is a fracture in the posterior aspect of tooth #30, pulp exposed, diffuse discomfort but no obvious pointing abscess. No evidence of trismus. Eyes Conjunctivae: conjunctivae normal Neck Neck: normal visual inspection, trachea midline and supple Resp Effort & Inspection: normal respiratory effort and able to speak in complete sentences Cardio Rate: regular rate Rhythm: regular rhythm Skin General skin exam: no rashes or lesions noted Neuro General: patient alert, patient awake, moves all extremities and no focal motor deficits Sensory Exam: no sensory deficits noted Psych Appearance: grossly normal Mental Status: mental status grossly normal Course Vital Signs Vital signs: Vital Signs Temperature 36 C L 02/28/21 14:30 Pulse 87 02/28/21 14:30 Respiratory Rate 16 02/28/21 14:30 Blood Pressure 130/78 02/28/21 14:30 Pulse Oximetry 98 02/28/21 14:30 Temperature 36 C L 02/28/21 14:30 Temperature Source Skin 02/28/21 14:30 Pulse 87 02/28/21 14:30 Respiratory Rate 16 02/28/21 14:30 Respiratory Effort Non-Labored 02/28/21 14:30 Blood Pressure 130/78 02/28/21 14:30 Blood Pressure Position Sitting 02/28/21 14:30 Pulse Oximetry 98 02/28/21 14:30 Oxygen Delivery Method Room Air 02/28/21 14:30 Oxygen Flow Rate 0 02/28/21 14:30 Pain Level 10 02/28/21 14:30 Procedures Other Description: First placed 2 cc of viscous lidocaine on tooth #30. Patient reports she is now nearly pain-free. I was unable to fill in the fracture Dycal. Patient tolerated well
== END 2021-02-28 15:47 | disposition home or self-care (01) ==
PROVIDERS: Emergency Provider Physician Assistant; PCP Nurse Practitioner Adult Health
DX: K04.7 Periapical abscess without sinus (principal)
CPT/HCPCS: 99283

== ENCOUNTER 2021-03-03 08:24 | Outpatient (REF) | payer MEDICAID, SELFPAY | END 2021-03-03 08:25 | disposition home or self-care (01) | LOC: LBN 08:24 | PROVIDERS: PCP Nurse Practitioner Adult Health; Visit Provider Nurse Practitioner Adult Health | DX: R31.9 Hematuria, unspecified (principal) | CPT/HCPCS: 87086 ==

== ENCOUNTER 2021-08-04 18:05 | Emergency (ER) | payer MEDICAID, SELFPAY ==
[2021-08-04 18:14] VITALS: BP 111/69; PULSE 120; RESP 18; TEMP 37.7; O2SAT 99
--- NOTE | 2021-08-04 18:57 | ED.GENADUL_ITS ---
Discharge Plan Disposition Patient Disposition: HOME Condition: Stable Discharge Details Clinical Impression: Fall down stairs, Closed fracture of head of metacarpal, Laceration of hand, right, Sprain of forearm, right Primary Care Provider: Kymberly Sandoval ED Provider: Prashant Lawton Home Meds and New Rx's Prescriptions: No Action albuterol sulfate [ProAir HFA] 90 mcg/actuation HFA aerosol inhaler 2 puff Inhalation Q4H PRN Qty: 1 RF: 1 Discharge Instructions Instructions: Laceration (ED), Hand Fracture (ED) Additional Instructions: Please keep splint intact and follow-up with orthopedics. Use sling as needed for comfort. Allow Steri-Strips to fall off on their own. Please take ibuprofen over the counter. Take 600mg by mouth every 6 hours as needed for pain. Please contact your primary care physician to arrange follow-up. Return to the ER immediately for any worsening or new concerning symptoms. Referrals: [facility] [Provider Group] Medical Decision Making 1901 --46-year-old female here with right forearm pain and tenderness as well as right hand pain and swelling with linear laceration over 2nd MCP. Neuro intact distally. Concern for fracture. Plan to obtain x-ray of the forearm and hand. Patient also with pain and tenderness anterior medial right knee. No patellar t enderness. --X-ray of the forearm interpreted by radiology: No acute findings. X-ray of the hand reviewed and interpreted by radiology: Potential nondisplaced fracture involving the second metacarpal head. X-ray of the right knee was reviewed and interpreted by me: No fracture. --Right hand wound was anesthetized with topical lidocaine and irrigated with copious sterile saline. Wound was explored and is superficial with no extension to deeper tissue. Steri-Strips applied for closure. A volar splint was fashioned with padded aluminum and first and second digits were splinted in flexed position. Patient does continue to complain of forearm pain with supination. Suspect sprain. I have provided sling for comfort. Patient was encouraged to follow-up with orthopedics. HPI General Mode of arrival: ambulatory . Date/Time Provider Initiated Documentation: 08/04/21 18:20 . Limitations to Documentation: no limitations . Information obtained by: patient . HPI Narrative: 46-year-old female presents with chief complaint of forearm pain. Patient notes right forearm pain started after fall downstairs. Patient notes she was pulled by her dog and slipped and fell down approximately 12 stairs on her stomach. She notes she injured her arm during the fall. She also states that she fell on ice 2 days ago and injured her proximal forearm. She was not seen for medical assessment at that time and proximal forearm has remained sore. Patient also notes pain in her right hand with laceration over second MCP. She has no associated numbness or tingling. Patient denies head trauma. No neck or back pain. No chest or abdominal pain. Related Data Home Medications Medication Instructions Recorded Confirmed albuterol sulfate 90 mcg/actuation 2 puff INHALATION Q4H PRN #1 07/30/19 08/04/21 aerosol inhaler inhaler Previous Rx's Medication Instructions Recorded albuterol sulfate 90 mcg/actuation 2 puff INHALATION Q4H PRN #1 07/30/19 aerosol inhaler inhaler Allergies Allergy/AdvReac Type Severity Reaction Status Date / Time lamotrigine Allergy Severe Skin Rash Verified 08/04/21 18:24 Penicillins Allergy Unknown Hives Verified 08/04/21 18:24 General Stated Complaint: Trauma BRIDGET: 3 Review of Systems All systems reviewed & are unremarkable except as noted in HPI and below Constitutional Constitutional: Denies fever(s) Cardiovascular Cardiovascular: Denies chest pain and Denies dyspnea Respiratory Respiratory: Denies dyspnea PFSH All Active Problems (Updated 08/04/21 @ 21:36 by Prashant Lawton MD) Fall down stairs (Acute) Closed fracture of head of metacarpal (Acute) Laceration of hand, right (Acute) Sprain of forearm, right (Acute) Gastrointestinal complaints (Acute) HPV test positive (Acute) Stress incontinence (Acute) Chronic right shoulder pain (Chronic) Tobacco use disorder (Acute) Medical History Dental infection Depression Surgical History History of carpal tunnel release R Ligation of fallopian tube Family History Father Diabetes Sister Personal history of malignant neoplasm Other Alcohol abuse Social History Smoking/Tobacco Use Status: Current every day Tobacco Type: cigarettes Quit status: considering quitting Smoking risk assessment performed?: Yes Alcohol Intake: current Alcohol Intake frequency: a few times a week Drug use: Daily Substance use type: marijuana Household members: significant other Housing: apartment Communication Needs: Corrective Lenses Do you need help understanding health information?: Never Pets and animals: Yes (2) Pets and animals: dog(s) What is your relationship status?: living with partner How often do you talk on the phone with friends or family?: three or more times per week How often do you get together with friends or relatives?: three or more times per week How often do you attend amish or taoism services?: 1-3 times per year Do you belong to any clubs or organized social groups?: no Panel score (0-1 are the most socially isolated patients): 2 What type of physical activity do you participate in: none [place]/Mormon: Jehovah'S Witness Special adelaide needs: No Seatbelt use: sometimes Drive intox or ride w/intox wedding transportation driver: No Do you feel safe at home: Yes Do you feel safe in your relationship?: Yes Exam Const General: cooperative and no acute distress HENMT Head: normocephalic and atraumatic Mouth: moist mucous membranes Eyes Conjunctivae: normal conjunctivae Sclera: normal sclerae Neck Neck: full ROM, trachea midline, supple and nontender Resp Auscultation: clear to auscultation bilaterally, no rales, no rhonchi and no wheezes Cardio Rate: regular rate and not tachycardic Rhythm: regular rhythm GI Palpation: soft, not firm, no guarding, no masses, not rigid and nontender Back/Spine/Pelvis Cervical Spine: cervical ROM normal Thoracic/Lumbar Spine: thoracic and lumbar spine normal to inspection Pelvis: no pain with anterior-posterior compression and no pain with lateral compression Skin General skin exam: no rashes or lesions noted Neuro General: patient alert, patient awake, patient oriented x3 and tone normal Extrem Right upper extremity: elbow/forearm Details: tenderness Location: of the mid- shaft forearm and hand (rt 2nd and 3rd mcp swelling and ttp, linear superficial lac) Details: neurosensory exam normal Right lower extremity: knee Details: tenderness (anterior medial) Location: not of the patella and not of the medial joint line and normal ROM; no swelling and no deformity Psych Appearance: grossly normal Mental Status: mental status grossly normal Course Vital Signs Vital signs: Vital Signs Temperature 37.7 C H 08/04/21 18:14 Pulse 120 H 08/04/21 18:14 Respiratory Rate 18 08/04/21 18:14 Blood Pressure 111/69 08/04/21 18:14 Pulse Oximetry 99 08/04/21 18:14 Temperature 37.7 C H 08/04/21 18:14 Temperature Source Temporal Artery Scan 08/04/21 18:14 Pulse 120 H 08/04/21 18:14 Respiratory Rate 18 08/04/21 18:14 Respiratory Effort 08/04/21 18:29 Respiratory Depth Normal 08/04/21 18:29 Respiratory Pattern Normal 08/04/21 18:29 Blood Pressure 111/69 08/04/21 18:14 Blood Pressure Position Sitting 08/04/21 18:14 Pulse Oximetry 99 08/04/21 18:14 Oxygen Delivery Method Room Air 08/04/21 18:14 Oxygen Flow Rate 0 08/04/21 18:14 Pain Level 10 08/04/21 18:29 PAWSS Have you Been Recently Intoxicated or Drunk Within the Last 30 days?: No Have you Ever Experienced Previous Episodes of Alcohol Withdrawal?: No Have you ever Experienced Withdrawal Seizures?: No Have you ever Experienced Delirium Tremens(DT)s?: No Have you ever undergone Alcohol Rehabilitation Treatment (i.e, inpt ot outpatient treatment programs)?: No Have you ever Experienced Blackouts?: No Have you ever Combined Alcohol with other Downers within the last 90 days?: No Have you ever Combined Alcohol with any other Substance of Abuse during the last 90 days?: No Positive Blood Alcohol level on Presentation? [PCS.BAL]: No Evidence of Increased Autonomic Activity (i.e. HR>120, tremor, sweating, agitation, nausea)?: No Result: 0
--- NOTE | 2021-08-04 19:33 | DI.RAD_ITS ---
Exam(s) XR HAND RT COMPLETE EXAM: XR HAND RT COMPLETE CLINICAL HISTORY: trauma, pain, swelling 2nd mcp. TECHNIQUE: 2D digital imaging was performed. COMPARISON: No exams were available for comparison FINDINGS: Mild irregularity of the 2nd metacarpal head is noted which is probably related to degenerative finn e. On 1 image there is a subtle suggestion of possible nondisplaced fracture line at this level. Co rrelate there are no other potential fracture sites evident. No radiopaque foreign body. No osseous lesions and bone density is normal. IMPRESSION: Possible very subtle fracture at the level 2nd metacarpal head. Correlation with site of tenderness recommended. Appropriate follow-up recommended. DATA REPOSITORY: RADIATION DOSE DELIVERED:
--- NOTE | 2021-08-04 19:33 | DI.RAD_ITS ---
Exam(s) XR FOREARM RT EXAM: XR FOREARM RT CLINICAL HISTORY: trauma, fall, pain prox in mid forearm. TECHNIQUE: 2D digital imaging was performed. COMPARISON: No exams were available for comparison FINDINGS: Two views of the right forearm reveal no evidence of acute fracture. No dislocation. No radiopaque foreign body. No elbow joint. IMPRESSION: No fracture evident. DATA REPOSITORY: RADIATION DOSE DELIVERED:
[2021-08-04 20:08] VITALS: BP 114/73; PULSE 82; RESP 18; TEMP 37; O2SAT 97
--- NOTE | 2021-08-04 20:15 | DI.VRAD_ITS ---
PROCEDURE INFORMATION: Exam: XR Right Forearm Exam date and time: 08/04/2021 6:53 PM Age: 46 years old Clinical indication: Pain; Lower or forearm; Right; Patient HX: Dog tripped her and fell down some stairs, . patient unable to fully extend he arm. TECHNIQUE: Imaging protocol: XR Right forearm. Views: 2 views. COMPARISON: CR XR HAND RT COMPLETE 08/04/2021 7:25 PM FINDINGS: Bones/joints: Normal. Soft tissues: Normal. IMPRESSION: No acute findings. Dictated and Authenticated by: Girish Salinas MD. Ordering:ALEM Cerda MD
--- NOTE | 2021-08-04 20:15 | DI.VRAD_ITS ---
PROCEDURE INFORMATION: Exam: XR Right Hand Exam date and time: 08/04/2021 6:53 PM Age: 46 years old Clinical indication: Pain; Hand; Right; Patient HX: Dog tripped her. Falling down some stairs. Abrasion over her index finger. TECHNIQUE: Imaging protocol: XR Right hand. Views: 3 or more views. COMPARISON: CR RIGHT WRIST COMPLETE 09/21/2017 10:26 AM FINDINGS: Bones/joints: There is a subtle irregularity involving the 2nd meta carpal head. This could potentially represent a nondisplaced fracture. Soft tissues: Normal. IMPRESSION: Potential nondisplaced fracture involving the 2nd metacarpal head. Consider follow-up in about 7 days. Dictated and Authenticated by: Girish Salinas MD. Ordering:ALEM Cerda MD
[2021-08-04] MEDS: Lidocaine/Epinephri/Tetracaine Topical Gel 3 ML TP (20:23)
[2021-08-04] MEDS: Ibuprofen 600 MG TAB PO (20:23)
--- NOTE | 2021-08-04 20:45 | DI.RAD_ITS ---
Exam(s) XR KNEE RT 3V AP,LAT,FLOR EXAM: XR KNEE RT 3V AP,LAT,FLOR CLINICAL HISTORY: pain medial, trauma. TECHNIQUE: 2D digital imaging was performed. COMPARISON: No exams were available for comparison FINDINGS: No evidence of fracture or joint effusion. No osseous lesions. No degenerative changes. Bone densi ty normal. IMPRESSION: No significant findings. DATA REPOSITORY: RADIATION DOSE DELIVERED:
--- NOTE | 2021-08-04 21:32 | DI.VRAD_ITS ---
PROCEDURE INFORMATION: Exam: XR Right Knee Exam date and time: 08/04/2021 20:54 Age: 46 years old Clinical indication: Other: Trauma TECHNIQUE: Imaging protocol: XR Right knee. Views: 3 views. COMPARISON: No relevant prior studies available. FINDINGS: Bones/joints: No acute fracture or subluxation. Soft tissues: Unremarkable. IMPRESSION: No acute bony pathology. Dictated and Authenticated by: Balbina Morin MD. Ordering:ALEM Cerda MD
== END 2021-08-04 21:41 | disposition home or self-care (01) ==
PROVIDERS: Emergency Provider Student in an Organized Health Care Education/Training Program; PCP Nurse Practitioner Adult Health
DX: S62.390A Other fracture of second metacarpal bone, right hand, initial encounter for closed fracture (principal); S61.411A Laceration without foreign body of right hand, initial encounter; S63.591A Other specified sprain of right wrist, initial encounter; W10.8XXA Fall (on) (from) other stairs and steps, initial encounter
CPT/HCPCS: 29125; 29130; 73562; 99284; 73090; 73130

== ENCOUNTER 2021-08-09 11:47 | Outpatient (CLI) | payer MEDICAID, SELFPAY ==
--- NOTE | 2021-08-09 11:30 | DI.RAD_ITS ---
Exam(s) XR HAND RT COMPLETE EXAM: XR HAND RT COMPLETE CLINICAL HISTORY: pain out of proportion. TECHNIQUE: 2D digital imaging was performed. COMPARISON: CR,XR XR HAND RT COMPLETE from 08/04/2021 FINDINGS: BONES: No acute fracture is present. No bony destructive lesion is seen. JOINTS: No dislocation present. Mild degenerative changes interphalangeal joints SOFT TISSUE: Normal. IMPRESSION: Unremarkable radiographs of the right hand. DATA REPOSITORY: RADIATION DOSE DELIVERED:
== END 2021-08-09 11:48 | disposition home or self-care (01) ==
LOC: DIORS 11:47
PROVIDERS: PCP Nurse Practitioner Adult Health; Visit Provider Physician Assistant Surgical
DX: M79.641 Pain in right hand (principal); S62.390D Other fracture of second metacarpal bone, right hand, subsequent encounter for fracture with routine healing; W10.8XXD Fall (on) (from) other stairs and steps, subsequent encounter
CPT/HCPCS: 73130

== ENCOUNTER 2021-08-12 15:14 | Outpatient (REF) | payer MEDICAID, SELFPAY ==
[2021-08-14 15:15] LABS: COVID-19 RT-PCR UVMMC Result Positive (Negative)
== END 2021-08-12 15:15 | disposition home or self-care (01) ==
LOC: LBN 15:14
PROVIDERS: PCP Nurse Practitioner Adult Health; Visit Provider Physician Assistant
DX: Z20.822 Contact with and (suspected) exposure to COVID-19 (principal)
CPT/HCPCS: U0003

== ENCOUNTER 2021-08-15 01:50 | Emergency (ER) | payer MEDICAID, SELFPAY ==
[2021-08-15 01:56] VITALS: BP 141/79; PULSE 100; RESP 18; TEMP 37.7; O2SAT 98
--- NOTE | 2021-08-15 02:00 | DI.CT_ITS ---
Exam(s) CT CHEST PE ABD PELVIS W EXAM: CT CHEST PE ABD PELVIS W CLINICAL HISTORY: n/v, abdominal pain, ?boeerhaves, covid+. TECHNIQUE: Imaging Protocol: Axial CT angiography was performed with multi-slice acquisition and m ulti-planar and/or 3D reconstructions. CONTRAST MATERIAL: Intravenous: Omnipaque 350 Contrast volume:100 ml Oral: None COMPARISON: CT CT ABDOMEN PELVIS WO/W from 05/28/2019 FINDINGS: CHEST: PULMONARY ARTERIES: There are no intra-arterial filling defects to suggest the presence of acute pulm onary emboli. LUNGS: Both upper lobes are clear as is the right middle lobe. However, there are multiple areas of patchy infiltrate in both lower lobes, not associated with pleural effusions..No pneumothorax. MEDIASTINUM: There is no hilar nor mediastinal adenopathy. Visualized thyroid unremarkable. CARDIAC: Heart size is normal. There is no pericardial effusion. There is no significant shift of t he interventricular septum.Caliber of the thoracic aorta is within normal limits. OSSEOUS: No significant osseous lesions.. ABDOMEN: Motion artifact degrades the study. There is no ascites. LIVER: There are no ominous focal hepatic lesions nor dilatation of intrahepatic ducts. GALLBLADDER/BILIARY: No obvious gallbladder pathology. CBD is not dilated. PANCREAS: No evidence of pancreatic mass nor dilatation of the pancreatic duct. SPLEEN: Spleen is not enlarged. There are no intrasplenic lesions. Splenic and portal veins are rivero nt. ADRENALS: There are no significant adrenal masses. KIDNEYS:No obvious cysts evident. No obvious calculi nor hydronephrosis. No obvious solid renal des s. ABDOMINAL AORTA: Abdominal aorta is not enlarged. LYMPH NODES: There is no retroperitoneal or para-aortic adenopathy. ABDOMINAL WALL/GI: No evidence of significant anterior abdominal wall hernia. No bowel obstruction. PELVIS: LYMPH NODES: There is no intrapelvic nor inguinal adenopathy. GI: No evidence of obvious appendicitis.No evidence of sigmoid diverticulitis. URINARY BLADDER: No calculi nor masses evident REPRODUCTIVE: Uterus size is normal. There is a cyst in the right ovary which measures 1.2 x 1.1 cm. Left ovary is difficult to differentiate from adjacent unopacified bowel loops. There is no free f luid in the pelvis. OSSEOUS: No significant osseous lesions. IMPRESSION: 1. No evidence of acute pulmonary emboli nor pulmonary infarction. 2. Patchy bilateral infiltrates in both lower lobes, not associated with pleural effusions. Recommen d appropriate testing for Covid-19 pneumonia. 3. Small cyst measuring 12 x 11 millimeters noted in the right ovary. No other adnexal findings. No free fluid in the pelvis. 4. No significant osseous lesions. 5. There is no ascites RADIATION DOSE DELIVERED: 1,730.07mGy.cm Total DLP DATA REPOSITORY: All CT scans at this facility are submitted to the National Radiology Data Registry (NRDR) Dose Index Registry (DIR) with the [employer] (ACR). RADIATION OPTIMIZATION: All CT scans at this facility use at least one of these dose optimization te chniques: automated exposure control; mA and/or kV adjustment per patient size (includes targeted exa ms where dose is matched to clinical indication); or iterative reconstruction.
--- NOTE | 2021-08-15 02:10 | W.ED.GENAD ---
Discharge Plan Disposition Patient Disposition: HOME Condition: Stable Discharge Details Clinical Impression: COVID, Nausea & vomiting, Abdominal pain Primary Care Provider: Kymberly Sandoval ED Provider: Aureliano Ruelas Home Meds and New Rx's Prescriptions: New prochlorperazine maleate [Compazine] 10 mg tablet 10 mg PO Q8H PRN (Reason: nausea and vomiting) Qty: 30 RF: 0 Continued benzonatate 100 mg capsule 100 mg PO TID PRN (Reason: cough) Qty: 14 RF: 0 albuterol sulfate [ProAir HFA] 90 mcg/actuation HFA aerosol inhaler 2 puff Inhalation Q4H PRN Qty: 1 RF: 1 Discontinued ondansetron HCl [Zofran] 4 mg tablet 4 mg PO Q8H PRN (Reason: nausea and vomiting) Qty: 10 RF: 0 Discharge Instructions Care Plan Goals: your blood work and cat scan showed no significant findings, you have mild opacities in the lung which is common in patient's with covid take frequent small sips of water to stay hydrated follow up with your primary care provider this week if you feel more ill, have persistent vomit or difficulty breathing return to the emergency department Medical Decision Making 46 yo female chronic smoker not vaccinated for covid who tested positive on 08/12, comes in with n/v. She started to have cough and body aches last Monday, went to [facility] on 08/12 and had a test taken for covid which came back positive and since yesterday has had persistent n/v and developed abdominal pain and chest pain when she does vomit. Denies chest pressure, diaphoresis, dyspnea. She is intermittently throwing up during the exam. CAox4, tenderness mainly in the upper abdomen, no lower abdominal tenderness. Suspect this is covid related GI symptoms but will evaluate for pancreatitis, treat with ivf and compazine as she has tried zofran at home and also obtain ct chest to evaluate for boerhaave's and also ct abd/pelvis to evaluate for sbo and other surgical pathology labs and imaging show no significant findings, has mild opacities in the lung consistent with covid. She feels much better after compazine and has stable vitals not requiring o2. Discussed with pt and no longer has abodminal tenderness, she is stable for d/c. Advised to discuss getting MAB with her pcp Monday and return precautions given Differential Diagnosis Differential Diagnosis: covid, boerhaave's, pancreatitis Medical Records Medical records reviewed: Yes I reviewed the patient's medical records. Imaging Data Radiologic Study: Attestation: I personally reviewed and interpreted this imaging study as follows: Imaging: CT Scan My impression: IMPRESSION: No pulmonary emboli observed Mild bibasilar opacities in this patient with COVID-[address] evidence for esophageal perforation Lab Data Lab results reviewed: Yes I reviewed the patient's lab results. HPI General Mode of arrival: ambulatory. Date/Time Provider Initiated Documentation: 08/15/21 01:55. Limitations to Documentation: no limitations. Information obtained by: patient. History of Present Illness 46 year old F presents to the emergency department with the chief complaint of n/v, described as moderate, Patient started experiencing this day(s) (2) and it has been constant. No relieving factors improve symptom(s), No exacerbating factors reported . Patient notes cough. Patient did receive the following treatments prior to arrival, other (zofran) Related Data Home Medications Medication Instructions Recorded Confirmed albuterol sulfate 90 mcg/actuation 2 puff INHALATION Q4H PRN #1 08/12/21 08/12/21 aerosol inhaler inhaler benzonatate 100 mg capsule 100 mg PO TID PRN #14 cap 08/12/21 08/12/21 prochlorperazine maleate 10 mg PO Q8H PRN #30 tab 08/15/21 [Compazine] Previous Rx's Medication Instructions Recorded albuterol sulfate 90 mcg/actuation 2 puff INHALATION Q4H PRN #1 08/12/21 aerosol inhaler inhaler benzonatate 100 mg capsule 100 mg PO TID PRN #14 cap 08/12/21 prochlorperazine maleate 10 mg PO Q8H PRN #30 tab 08/15/21 [Compazine] Allergies Allergy/AdvReac Type Severity Reaction Status Date / Time lamotrigine Allergy Severe Skin Rash Verified 08/12/21 13:36 Penicillins Allergy Unknown Hives Verified 08/12/21 13:36 General Stated Complaint: Nausea/Vomit/Diar BRIDGET: 3 Review of Systems All systems reviewed & are unremarkable except as noted in HPI and below Constitutional Constitutional: Denies chills and Denies fever(s) Cardiovascular Cardiovascular: Denies dyspnea Respiratory Respiratory: Denies dyspnea Musculoskeletal Musculoskeletal: Denies joint swelling Psychiatric Psychiatric: Denies depression PFSH All Active Problems (Updated 08/15/21 @ 03:44 by Aureliano Ruelas MD) COVID (Acute) Nausea & vomiting (Acute) Abdominal pain (Acute) Sprain of hand, right (Acute) Fall down stairs (Acute) Closed fracture of head of metacarpal (Acute) Laceration of hand, right (Acute) Sprain of forearm, right (Acute) Gastrointestinal complaints (Acute) HPV test positive (Acute) Repeat pap/HPV 2021 Stress incontinence (Acute) Chronic right shoulder pain (Chronic) h/o multiple surgeries [facility]; referred to Ortho 04/2020 to revisit Tobacco use disorder (Acute) Medical History Dental infection Depression Surgical History History of carpal tunnel release R Ligation of fallopian tube Family History Father Diabetes Sister Personal history of malignant neoplasm Other Alcohol abuse Social History Smoking/Tobacco Use Status: Current every day Tobacco Type: cigarettes Quit status: considering quitting Smoking risk assessment performed?: Yes Alcohol Intake: current Alcohol Intake frequency: a few times a week Drug use: Daily Substance use type: marijuana Household members: significant other Housing: apartment Communication Needs: Corrective Lenses Do you need help understanding health information?: Never Pets and animals: Yes (2) Pets and animals: dog(s) What is your relationship status?: living with partner How often do you talk on the phone with friends or family?: three or more times per week How often do you get together with friends or relatives?: three or more times per week How often do you attend zoroastrianism or anabaptist services?: 1-3 times per year Do you belong to any clubs or organized social groups?: no Panel score (0-1 are the most socially isolated patients): 2 What type of physical activity do you participate in: none [place]/Mandaeism: Yazdanism Special adelaide needs: No Seatbelt use: sometimes Drive intox or ride w/intox stunt driver: No Do you feel safe at home: Yes Do you feel safe in your relationship?: Yes Exam Const General: other (intermittent vomit/dry heaves) Orientation: alert HENMT Head: normal to inspection Ears: external ears normal General nose exam: external nose normal Mouth: moist mucous membranes Eyes General: appearance normal, both eyes and all related structures Neck Neck: normal visual inspection Resp Effort & Inspection: normal respiratory effort and able to speak in complete sentences Cardio Rate: regular rate GI Palpation: soft and tender Skin General skin exam: no rashes or lesions noted Neuro General: patient alert and patient oriented x3 Extrem General: normal to inspection Psych Mental Status: mental status grossly normal Course Vital Signs Vital signs: Vital Signs Temperature 37.7 C H 08/15/21 01:56 Pulse 100 H 08/15/21 01:56 Respiratory Rate 18 08/15/21 01:56 Blood Pressure 141/79 H 08/15/21 01:56 Pulse Oximetry 98 08/15/21 01:56 Temperature 37.7 C H 08/15/21 01:56 Temperature Source Temporal Artery Scan 08/15/21 01:56 Pulse 100 H 08/15/21 01:56 Respiratory Rate 18 08/15/21 01:56 Respiratory Effort 08/15/21 02:00 Blood Pressure 141/79 H 08/15/21 01:56 Blood Pressure Position Supine 08/15/21 01:56 Pulse Oximetry 98 08/15/21 01:56 Oxygen Delivery Method Room Air 08/15/21 01:56 Oxygen Flow Rate 0 08/15/21 01:56 Pain Level 6 08/15/21 01:56
[2021-08-15] MEDS: Normal Saline 1,000 ML 1000 ML IV (02:12)
[2021-08-15] MEDS: Prochlorperazine 10 MG/2 ML VIAL (02:13)
[2021-08-15 02:16] LABS: Abs Immature Grans 0.01 10^3/uL (0.0-0.06); Absolute Basophil Count 0.04 10^3/uL (0.0-0.2); Absolute Lymphocyte Count 0.61 10^3/uL (1.2-3.4); Absolute Monocyte Count 0.51 10^3/uL (0.1-0.8); HCT 41.1 % (36.0-46.0); HGB 14.1 g/dL (11.2-15.7); Immature Grans % 0.2; Lymphocytes % 14.6; MCHC 34.3 % (32.0-36.0); MCV 90.3 fL (80-95); MPV 9.8 fL (8.0-11.0); Monocytes % 12.2; Nucleated RBC 0 %; Platelet Count 317 10^3/uL (130-400); RBC 4.55 10^6/uL (3.93-5.22); RDW 11.9 % (11.7-14.6); RDW-SD 39.6 fL; WBC 4.17 10^3/uL (4.4-10.8)
[2021-08-15 02:37] LABS: ALT 19 U/L (14-59); AST 21 U/L (15-37); Albumin 3.5 g/dL (3.4-5.0); Alkaline Phosphatase 55 U/L (46-116); BUN 15 mg/dL (7-18); Bilirubin, Total 0.4 mg/dL (0.2-1.0); Calcium 8.4 mg/dL (8.5-10.1); Chloride 96 mmol/L (98-107); Estimated GFR 59.18 (mL/min/1.73m2); Glucose 119 mg/dL (74-106); HCG Qual (Serum) Negative; Lipase 76 U/L (73-393); Magnesium 2.1 mg/dL (1.8-2.4); Potassium 3.2 mmol/L (3.5-5.1); Sodium 133 mmol/L (136-145); Total Protein 7.9 g/dL (6.4-8.2)
[2021-08-15] MEDS: Omnipaque 350 MG/ML 100 ML BTL IJ (02:58)
--- NOTE | 2021-08-15 03:26 | DI.VRAD_ITS ---
PROCEDURE INFORMATION: Exam: CTA Chest With Contrast Exam date and time: 08/15/2021 2:10 AM Age: 46 years old Clinical indication: Nausea and vomiting; Patient HX: N/v, abdominal pain, ? boeerhaves, covid+ TECHNIQUE: Imaging protocol: Computed tomographic angiography of the chest with contrast. 3D rendering (Not supervised by radiologist): MIP and/or 3D reconstructed images were created by the technologist. COMPARISON: CT ABDOMEN PELVIS WO/W 05/28/2019 9:10 AM FINDINGS: Pulmonary arteries: No pulmonary emboli. Aorta: No aortic aneurysm. No aortic dissection. Lungs: Mild basilar opacities greater on the right. Pleural spaces: No pneumothorax. No pleural effusion. Heart: No cardiomegaly. No pericardial effusion. Lymph nodes: Prominent right hilar lymph nodes. Bones/joints: Unremarkable. No acute fracture. Soft tissues: Unremarkable. IMPRESSION: No pulmonary emboli observed Mild bibasilar opacities in this patient with COVID-[address] evidence for esophageal perforation PROCEDURE INFORMATION: Exam: CT Abdomen And Pelvis With Contrast Exam date and time: 08/15/2021 2:10 AM Age: 46 years old Clinical indication: Nausea and vomiting; Patient HX: N/v, abdominal pain, ? boeerhaves, covid+ TECHNIQUE: Imaging protocol: Computed tomography of the abdomen and pelvis with contrast. COMPARISON: CT ABDOMEN PELVIS WO/W 05/28/2019 9:10 AM FINDINGS: Limited due to motion artifact Liver: Fatty infiltration. Hypodensity in the right lobe axial image 7 series 12 too small to characterize. Gallbladder and bile ducts: Normal. No calcified stones. No ductal dilation. Pancreas: Normal. No ductal dilation. Spleen: Normal. No splenomegaly. Adrenal glands: Normal. No mass. Kidneys and ureters: Normal. No hydronephrosis. Stomach and bowel: Unremarkable. No obstruction. No mucosal thickening. Appendix: No evidence of appendicitis. Intraperitoneal space: Unremarkable. No free air. No significant fluid collection. Vasculature: Unremarkable. No abdominal aortic aneurysm. Lymph nodes: Unremarkable. No enlarged lymph nodes. Urinary bladder: Unremarkable as visualized. Reproductive: Unremarkable as visualized. Bones/joints: Unremarkable. No acute fracture. Soft tissues: Unremarkable. IMPRESSION: No acute findings. Dictated and Authenticated by: Dillon Foreman MD. Ordering:ALEKSANDR Bedoya MD
== END 2021-08-15 03:54 | disposition home or self-care (01) ==
PROVIDERS: Emergency Provider Emergency Medicine; PCP Nurse Practitioner Adult Health
DX: U07.1 COVID-19 (principal); R11.2 Nausea with vomiting, unspecified; R10.9 Unspecified abdominal pain; F17.210 Nicotine dependence, cigarettes, uncomplicated
CPT/HCPCS: 71275; 74177; 80053; 83690; 96361; 96374; 99284; 83735; 84703; 85025; J0780; J3490

== ENCOUNTER 2021-09-07 10:48 | Outpatient (CLI) | payer MEDICAID, SELFPAY ==
--- NOTE | 2021-09-07 10:00 | DI.RAD_ITS ---
Exam(s) XR SHOULDER RT COMPLETE 2+V EXAM: XR SHOULDER RT COMPLETE 2+V CLINICAL HISTORY: right shoulder pain. TECHNIQUE: 2D digital imaging was performed. COMPARISON: No exams were available for comparison FINDINGS: No evidence of acute fracture or dislocation. No calcifications in the subacromial space although th e subacromial space does appear diminished which may signify an element of rotator cuff pathology. A C joint with appears upper normal. No ominous osseous lesions. IMPRESSION: As above. Suspect rotator cuff pathology. DATA REPOSITORY: RADIATION DOSE DELIVERED:
== END 2021-09-07 10:49 | disposition home or self-care (01) ==
LOC: DIORS 10:48
PROVIDERS: PCP Nurse Practitioner Adult Health; Referring Provider Nurse Practitioner Adult Health; Visit Provider Student in an Organized Health Care Education/Training Program
DX: G89.29 Other chronic pain (principal); M25.511 Pain in right shoulder
CPT/HCPCS: 73030

== ENCOUNTER 2021-09-24 00:24 | Outpatient (CLI) | payer MEDICAID, SELFPAY ==
--- NOTE | 2021-09-24 06:30 | DI.US_ITS ---
Exam(s) US PELVIS TRANSVAGINAL EXAM: US PELVIS TRANSVAGINAL CLINICAL HISTORY: f/u CT 07/2021--R adnexal mass--?cyst-->resolved?N94.89,R93.89. TECHNIQUE: Transabdominal and transvaginal pelvic ultrasound was performed using standard protocol. COMPARISON: CT CT CHEST PE ABD PELVIS W from 08/15/2021 FINDINGS: KIDNEYS: Kidneys are symmetric in size. No evidence of renal calculi. No evidence of hydronephrosis. No renal mass or cyst identified. UTERUS: Position: Anteverted. Size: 6.5 long by 3.7 AP by 5.2 transverse cm Endometrium: 0.5 cm. Normal for patient's menstrual status. Myometrium: Unremarkable. Cervix: Unremarkable. OVARIES: The right ovary was not visualized transabdominally or transvaginally. No right adnexal mas s is seen. Left: 2.2 x 1.9 x 1.7 cm Cyst or mass: Small functional cyst is present. DOPPLER: Color: Symmetric and uniform flow to to the left ovary. No hyperemia. Duplex: Normal ovarian arterial waveforms visualized for the left ovary. CUL-DE-SAC: Free fluid: None. Other: None. IMPRESSION: 1. Normal sonographic appearance of the kidneys. 2. Normal-appearing uterus with endometrial stripe within normal limits. 3. The right ovary was not visualized transabdominally or transvaginally. No right adnexal mass is s een. 4. Unremarkable left ovary. DATA REPOSITORY:
--- NOTE | 2021-09-24 08:43 | DI.RAD_ITS ---
Exam(s) XR CHEST 2V PA LATERAL EXAM: XR CHEST 2V PA LATERAL CLINICAL HISTORY: F/U bibasilar infiltrates on CT--resolved?, COVID,R93.89,U07.1 TECHNIQUE: 2D digital imaging was performed of the chest. Two images were obtained. PA and lateral views were obtained. COMPARISON: CR XR CHEST 2V PA LATERAL from 10/10/[address] CHEST PE ABD PELVIS W from 08/15/2021 FINDINGS: MEDIASTINUM: Normal. HEART: Normal. PULMONARY VASCULATURE: Normal. LUNGS: Clear. PLEURAL SPACE: No pleural effusion or pneumothorax. BONE:Within normal limits for the patient's age. There is again seen a mild right convex thoracic sc oliosis. OTHER FINDINGS:Normal. IMPRESSION: No acute pulmonary findings. DATA REPOSITORY: RADIATION DOSE DELIVERED:
== END 2021-09-24 00:44 ==
PROVIDERS: PCP Nurse Practitioner Adult Health; Visit Provider Nurse Practitioner Adult Health
DX: N94.89 Other specified conditions associated with female genital organs and menstrual cycle (principal); R93.89 Abnormal findings on diagnostic imaging of other specified body structures; U07.1 COVID-19; R91.8 Other nonspecific abnormal finding of lung field
CPT/HCPCS: 71046; 76830; 76856

== ENCOUNTER 2021-10-22 01:45 | Outpatient (CLI) | payer MEDICAID, SELFPAY ==
[2021-10-22 12:29] LABS: Source Nasal/Nares
[2021-10-22 17:20] LABS: COVID-19 PCR Negative (Negative)
== END 2021-10-22 01:46 | disposition home or self-care (01) ==
LOC: LBO 01:46
PROVIDERS: PCP Nurse Practitioner Adult Health; Visit Provider Surgery
DX: Z20.822 Contact with and (suspected) exposure to COVID-19 (principal)
CPT/HCPCS: 87635

== ENCOUNTER 2021-10-25 06:19 | Day surgery (SDC) | payer MEDICAID, SELFPAY ==
--- NOTE | 2021-10-24 18:43 | ANES.PREOP_ITS ---
General Info Date of Service Date Performed: 10/25/21 Height: 5 ft 3 in Weight: 65.317 kg Body Mass Index (BMI): 25.4 Surgical Procedure: Operation Date: 10/25/21 07:35 Proposed Procedure Side Surgeon p Leti Salvador MD Meds Allergies and Home Medications Allergies Allergy/AdvReac Type Severity Reaction Status Date / Time lamotrigine Allergy Severe Skin Rash Verified 10/25/21 06:29 Penicillins Allergy Unknown Hives Verified 10/25/21 06:29 Home Medication Medication Instructions Recorded albuterol sulfate 90 mcg/actuation 2 puff INHALATION Q4H PRN #1 08/12/21 aerosol inhaler (ProAir HFA) inhaler nicotine 7 mg/24 hr daily 1 patch TRANSDERMAL Q24H #14 ea 08/27/21 transdermal patch clindamycin phosphate 1 % lotion 1 applic TOPICAL DAILY PRN #60 ml 09/24/21 amitriptyline 10 mg tablet 10 mg PO QHS 10/07/21 bisacodyl 5 mg tablet,delayed 5 mg PO ONCE #4 tab 10/07/21 release (Dulcolax (bisacodyl)) polyethylene glycol 3350 17 17 g PO ONCE #238 g 10/07/21 gram/dose oral powder polyethylene glycol 3350 17 17 g PO ONCE #238 g 10/21/21 gram/dose oral powder Current Visit Medications: Current Medications Generic Name Dose Route Start Last Admin Trade Name Freq PRN Reason Stop Dose Admin Ringer's Solution 1,000 mls @ 80 mls/hr 10/25/21 06:00 IV 11/18/21 23:59 INFUSION SHANNAN IV Miscellaneous Supplies 1 each 10/25/21 06:00 Iv Access IV 11/18/21 23:59 DIRECTED SHANNAN Sodium Chloride 0 ml 10/25/21 06:00 Normal Saline Flush 10 Ml Syr IV 11/18/21 23:59 PRN PRN Sodium Chloride 0 ml 10/25/21 06:00 Normal Saline 10 Ml Vial IJ 11/18/21 23:59 DIRECTED PRN Sterile Water 0 ml 10/25/21 06:00 Water,Injection,Sterile 10 Ml Vial IJ 11/18/21 23:59 DIRECTED PRN PFSH Active Problems Active Problems: Problem Status Onset Code Complex regional pain syndrome Medical History Medical History Carpal tunnel syndrome on right Chronic right shoulder pain h/o multiple surgeries [facility]; referred to Ortho 04/2020 to revisit Closed fracture of head of metacarpal COVID Cubital tunnel syndrome on right Dental infection Depression Fall down stairs Folliculitis Face s/p hair removal; Clinda topical RX Gastrointestinal complaints HPV test positive Repeat pap/HPV 2021 Laceration of hand, right Rotator cuff tear, right Scapulothoracic bursitis of right shoulder SLAP lesion of right shoulder Sprain of forearm, right Sprain of hand, right Stress incontinence Tendonitis of long head of biceps brachii of right shoulder Tobacco use disorder Medical History Comments:: Pt. stated she had a colonoscopy in 2013 and woke up in the middle of the procedure, is very concerned that she will wake up procedure Surgical History Surgical History (Updated 10/25/21 @ 06:27 by Mindy Mathew) H/O elbow surgery H/O shoulder surgery History of carpal tunnel release R Ligation of fallopian tube Tobacco Smoking/Tobacco Use Status: Current every day Tobacco Type: cigarettes Alcohol Alcohol Intake: current Alcohol intake frequency: holidays/special occasions only Substance Use Substance use: Daily Substance use type: marijuana Vital Signs and Lab Results Lab Results Blood Type / Crossmatch: No Data to Display Complete Blood Count: No Data to Display Complete Metabolic Panel: No Data to Display Liver Function Panel: No Data to Display Coagulation Panel: No Data to Display Cardiac Panel: No Data to Display Arterial Blood Gas: No Data to Display Venous Blood Gas: No Data to Display Pancreas Panel: No Data to Display Thyroid Panel: No Data to Display Infectious Disease: Coronavirus (COVID-19)(PCR) Negative (Negative) 10/22/21 10:41 10/22/21 Coronavirus 2019 Source Nasal/Nares 10/22/21 10:41 10/22/21 Blood Cultures: No Data to Display Toxicology Panel: No Data to Display Panel: No Data to Display Anesthesia Assessment and Plan Anesthesia History Personal History: Awareness Under Anesthesia Family History: No Family History of Anesthesia Complications Exercise Tolerance Exercise Tolerance: Metabolic Equivalents>4 Cardiac & Pulmonary Exam Cardiac Exam: Normal S1/S2 Heart Sounds Pulmonary Exam: Clear Bilateral Breath Sounds Implantable Cardiac Device Does patient have a Pacemaker or an ICD?: No Airway Exam Known Difficult Airway: No Mallampati Class: 4 Mouth Opening: Narrow (< 3cm) Thyromental Distance: Less than 3 cm Neck Range of Motion: Full ROM Neck Circumference: Normal Teeth Condition: Normal Dentition ASA Classification ASA Score: ASA 2 Emergency Case?: No NPO Status NPO Status: NPO Clears >2 hours, Solids >8 hours Status Status: Not Relevant due to Medical History Anesthesia Plan Resuscitation Status: Full Code Anesthesia Technique: General Anesthesia Airway Planned: Natural Airway Monitors Used: Standard Monitors Preoperative Comments:: 46 yo female for screening colonoscopy. Sig PMHx: Asthma (albuterol-seasonal), smoker (tobacco/cannabis), COVID Eliza 2020 - still fatigued. Previous Anes: awareness with colo at [facility] [place] in 2013 (midaz 6 mg, fent 200 mcg, diphenhydramine 50 mg)
[2021-10-25 06:36] VITALS: BP 101/63; PULSE 83; RESP 20; TEMP 36.7; O2SAT 98
--- NOTE | 2021-10-25 06:51 | COLE_ITS ---
Colonoscopy Report Date of procedure: 10/25/21 Pre-op diagnosis general: Colon Cancer Screening/ Constipation Post-op diagnosis procedure note: other (mild quinonez-diverticulosis and sigmoid polyp) Procedure: Colonoscopy with polypectomy Surgeon: Sandy Salvador Anesthesia Type: General:No Airway Estimated blood loss (mL): 3 Pathology: other (sigmoid polyp) Complications: None Disposition: same day Indications: The patient is here for Colonoscopy pre-op. Her last screening was in 2013 and was unremarkable. She has no family history of colon cancer. She describes chronic GI issues and complaints, currently struggling with constipation, bloating and hard stools. -Discussed colonoscopy bowel prep as well as the procedure. Discussed possible complications of the procedure to include bleeding, pain, perforation, missed small lesion/polyp, sore throat, aspiration and adverse reaction to the medications. Questions were answered to patient?s satisfaction. No guarantees were implied or given.? Prep: Miralax/Dulcolax Procedure Start Time: 07:25 Procedure End Time: 07:47 Retraction Time: 12 minutes Findings: Mild quinonez-diverticulosis One small sigmoid polyp Procedure Description: After informed consent was obtained the patient was taken to the procedure room and placed in a left decubitous position. Monitors were applied and a time out was done. The patients name, date of , procedure, allergies to medications and metal in their body was reviewed. The patient was then sedated. Once sedated and comfortable a rectal exam was done. External exam was normal. Internal exam revealed a normal sphincter tone and no palpable masses. The scope was then introduced and retro-flexed. No internal hemorrhoids, polyps or masses were identified on retro-flexion. The scope was then advanced to the cecum without difficulty. The ileocecal vlave and appendiceal orifice were identified. The prep was good. The scope was then slowly retracted over 12 minutes back into the rectum. Polyps were removed with cold forceps in the sigmoid colon. There was mild quinonez-diverticulosis noted. The scope was removed and the patient was woken up and taken back to Same day surgery in stable condition. The patient tolerated the procedure well and there were no immediate complicat ions. Follow up: Follow up recommendations will be given once the pathology results are in
--- NOTE | 2021-10-25 06:53 | W.PM.DSUDISC ---
Discharge Plan Disposition Patient Disposition: HOME Condition: Good Discharge Details Reason For Visit: Colonoscopy Attending Provider: Sandy Salvador Primary Care Provider: Kymberly Sandoval Home Meds and New Rx's Prescriptions: Continued amitriptyline 10 mg tablet 10 mg PO QHS 0RF albuterol sulfate [ProAir HFA] 90 mcg/actuation HFA aerosol inhaler 2 puff Inhalation Q4H PRN Qty: 1 1RF Rx Instructions: DISPENSE WITH SPACER nicotine 7 mg/24 hr patch 24 hour 1 patch transdermal Q24H Qty: 14 1RF clindamycin phosphate 1 % lotion 1 applic topical DAILY PRN (Reason: folliculitis s/p hair removal) Qty: 60 0RF Rx Instructions: To treat folliculitis--use 1-2 times after hair removal Discontinued bisacodyl [Dulcolax (bisacodyl)] 5 mg tablet,delayed release (DR/EC) 5 mg PO ONCE Qty: 4 0RF Rx Instructions: Take according to provider's instructions for colonoscopy prep. polyethylene glycol 3350 17 gram/dose powder 17 g PO ONCE Qty: 238 0RF Rx Instructions: To be taken as directed by prescriber's office for colonoscopy prep. polyethylene glycol 3350 17 gram/dose powder 17 g PO ONCE Qty: 238 0RF Rx Instructions: To be taken as directed by prescriber's office for colonoscopy prep. Discharge Instructions Instructions: Diverticulosis (DC) Additional Instructions: Findings: One small polyp Diverticulosis Follow up: I will send a letter with final recommendation Medications: for constipation I recommend using miralax daily, high fiber diet and increase in fluid Please call if you develop: fevers >101.5 Nausea or Vomiting Abdominal pain that is not transient Rectal bleeding that is more then a tbsp A hard abdomen and inability to pass gas DAY SURGERY UNIT POST ENDOSCOPY INSTRUCTIONS Instructions for everyone who is given Anesthesia: For your safety, please do the following for the next 24 Hours: a. Do not drive or operate dangerous equipment b. Do not drink alcohol beverages or use any recreational drugs for the first 24 hours or while taking pain medications. The medications in your body may have a reaction that can be dangerous. c. Do not make any important decisions or sign any important papers 1. Generally there are no restrictions on your activity after a day or so has gone by, but you may feel a bit fatigued for a few days. 2. After you arrive home you may have a light meal and return to a normal diet as you can tolerate it without feeling sick to your stomach. 3. After surgery, you may feel pain or discomfort. This should be only transient, but if it persists please contact your doctor. 4. If there are any questions regarding the findings of your procedure, please feel free to contact your doctor. 6. If you are unable to contact your doctor with a problem, contact the hospital at [phone]. 7. Continue all your regular medications unless directed otherwise. I understand the above instructions and have no questions. Signature of Patient or Responsible Adult Escort Date/Time Name of Responsible Adult Escort Signature of Nurse Date/Time Activity:: Activity as Tolerated Diet:: high fiber Discharge Orders Discharge Orders: Discharge Order (Routine); Ordered 10/25/21 Ordered By: Sandy Salvador
[2021-10-25] MEDS: Lactated Ringers 1,000 ML 80 ML IV (06:55)
[2021-10-25 07:03] VITALS: BMI 25.4
--- NOTE | 2021-10-25 07:45 | BOWEL_PTH ---
PATIENT: Toshia Ballesteros LOC: [facility] U#:[id number] AGE/SX: 46/F ROOM: RE10/25/[address]: Sandy Salvador MD : 1975 BED: DIS: 10/25/2021 SPEC #: [id number] RECD: 10/25/21 12:47 STATUS: RENETTA REAaliyah #: [id number] REECE: 10/25/21 07:[address]: Sandy Salvador DEPT: Surgical Specimen RECD BY: Chen Sutton ENTERED: 10/25/21 12:48 SP TYPE: Bowel OTHR DR: Kymberly Sandoval, KENYETTA Tissues: 1 - BIOPSY BOWEL Procedures: GROSS AND MICRO LEVEL 4 Comments: [id number]
[2021-10-25 07:58] VITALS: BP 100/77; PULSE 79; RESP 18; TEMP 36.5; O2SAT 97
--- NOTE | 2021-10-25 08:15 | W.ANESPOSTOP ---
Postoperative Evaluation Date, Time and Location Date Performed: 10/25/21 Time Performed: 08:08 Patient Location: Day Surgery Unit Vital Signs Most Recent Imported Vital Signs: Most Recent Vital Signs Temp Pulse Resp BP Pulse Ox 36.5 C 79 18 100/77 97 10/25/21 07:58 10/25/21 07:58 10/25/21 07:58 10/25/21 07:58 10/25/21 07:58 Pain Score Most Recent Pain Score: Most Recent Pain Score Pain Level 0 10/25/21 07:58 Assessment Mental Status: Awake (Alert & Oriented to Patient Baseline) Airway and Respiratory Function: Patent airway with normal (patient baseline) respiratory exam Cardiovascular Function: Hemodynamically Stable Hydration Status: Adequately Hydrated Nausea & Vomiting: No Nausea or Vomiting Pain: Pt. Denies Any Pain Peripheral Nerve Block: Patient did not receive a nerve block
[2021-10-25 08:30] VITALS: BP 104/61; PULSE 65; RESP 18; TEMP 36.6; O2SAT 98
== END 2021-10-25 08:52 | disposition home or self-care (01) ==
PROVIDERS: PCP Nurse Practitioner Adult Health; Visit Provider Surgery
PROC: 0DJD8ZZ Inspection of Lower Intestinal Tract, Via Natural or Artificial Opening Endoscopic (ICD-10-PCS; CPT 45378; principal; 2021-10-25 07:30)
DX: Z12.11 Encounter for screening for malignant neoplasm of colon (principal); K63.5 Polyp of colon; K57.30 Diverticulosis of large intestine without perforation or abscess without bleeding; K59.00 Constipation, unspecified
CPT/HCPCS: 45380; 81025; 88305; J2001

== ENCOUNTER 2021-12-01 11:00 | Outpatient (REF) | payer MEDICAID, SELFPAY ==
--- NOTE | 2021-12-01 12:00 | PAPFT_PTH ---
PATIENT: Toshia Ballesteros LOC: [facility] U#:[id number] AGE/SX: 46/F ROOM: RE12/01/[address]: Kymberly Sandoval APRN : 1975 BED: DIS: 12/01/2021 SPEC #: [id number] RECD: 12/02/21 12:52 STATUS: RENETTA REQ #: [id number] REECE: 12/01/21 12:[address]: Kymberly Sandoval DEPT: [facility] Cytology RECD BY: Chen Sutton Tissues: 1 - CX/ENDOCX FOR PAP SMEARS Procedures: PAP THIN PREP/UVM Screening HPV DNA PROBE Comments: [id number]
== END 2021-12-01 11:01 | disposition home or self-care (01) ==
LOC: LBN 11:00
PROVIDERS: PCP Nurse Practitioner Adult Health; Visit Provider Nurse Practitioner Adult Health
DX: Z12.4 Encounter for screening for malignant neoplasm of cervix (principal); Z11.51 Encounter for screening for human papillomavirus (HPV)
CPT/HCPCS: 88142; 87624

== ENCOUNTER 2021-12-29 01:39 | Outpatient (CLI) | payer MEDICAID, SELFPAY ==
[2021-12-29 11:47] LABS: ALT 20 U/L (14-59); AST 15 U/L (15-37); Albumin 3.7 g/dL (3.4-5.0); Alkaline Phosphatase 50 U/L (46-116); Anion Gap 9.4 mmol/L (3-11); BUN 11 mg/dL (7-18); Bilirubin, Total 0.9 mg/dL (0.2-1.0); CO2 26.6 mmol/L (21.0-32.0); CREATININE 0.9 mg/dL (0.55-1.02); Calcium 8.9 mg/dL (8.5-10.1); Calculated LDL 137 mg/dL (<100); Chloride 104 mmol/L (98-107); Cholesterol 223 mg/dL (<200); Glucose 94 mg/dL (74-106); HDL Cholesterol 71 mg/dL (40-60); Potassium 4.2 mmol/L (3.5-5.1); Sodium 140 mmol/L (136-145); TSH (W/Ref FT4) 2.71 uIU/mL (0.36-3.74); Total Protein 6.9 g/dL (6.4-8.2); Triglyceride 76 mg/dL (<150)
[2021-12-30 11:49] LABS: HIV-1/2 Ag & Ab Screen Negative (Negative)
[2021-12-30 11:57] LABS: Hepatitis C Ab w Rflx HCV PCR Negative (Negative)
== END 2021-12-29 01:40 | disposition home or self-care (01) ==
LOC: LBO 01:39
PROVIDERS: PCP Nurse Practitioner Adult Health; Visit Provider Nurse Practitioner Adult Health
DX: F41.9 Anxiety disorder, unspecified (principal); Z13.29 Encounter for screening for other suspected endocrine disorder; Z13.1 Encounter for screening for diabetes mellitus; Z13.220 Encounter for screening for lipoid disorders; Z11.4 Encounter for screening for human immunodeficiency virus [HIV]; Z11.59 Encounter for screening for other viral diseases
CPT/HCPCS: 36415; 80053; 80061; 86803; 87389; 84443

== ENCOUNTER → 2022-01-04 01:26 | Outpatient (CLI) | payer MEDICAID, SELFPAY ==
--- NOTE | 2022-01-04 15:50 | DI.MAMMO_ITS ---
Exam(s) MAMMO SCREENING EXAM: MAMMO SCREENING CLINICAL HISTORY: screening,z12.39. TECHNIQUE: Bilateral full field digital CC and MLO mammographic images were obtained with 3D tomosyn thesis and utilizing computer aided detection (CAD). COMPARISON: None. This is a baseline mammogram on this 46-year-old patient who has no breast compla ints. FINDINGS: Fibroglandular tissue pattern is moderately dense, this somewhat decreasing the sensitivity mammogram for finding hidden underlying lesions. In the medial aspect of the left breast there is a microcalcification group which will require spot M ag 2D views. The opposite-right breast there are asymmetric densities seen medially which require spot compression views. There are no obvious spiculated masses. There is no significant architectural distortion nor skin thickening-retraction. IMPRESSION: Dense bilateral fibroglandular tissue. Findings bilaterally which require additional imaging, specif ically a microcalcification group medially in the left breast and asymmetric densities-possible nodul es medially in the right breast. This patient requires spot views bilaterally, and given the density of her fibroglandular tissue sholeydi ld undergo bilateral complete breast ultrasound examination BI-RADS Category 0 - Assessment Incomplete: Need additional imaging evaluation Breast Density - Category C - Heterogeneously dense Breast density Category C or D implies that the patient has dense breast tissue. Dense breast tissue can make it harder to find cancer on a mammogram. Dense breast tissue is also associated with an incr eased risk of breast cancer. This information about the result of the mammogram report was provided to the patient to raise their awareness. Use this report when you speak with the patient about their risks for breast cancer, which includes their family history. At that time, you may recommend additional screening tests (Ultrasoun d or MRI) as these tests may add significant information. A negative radiographic report should not delay biopsy if a dominant or clinically suspicious mass is present. Up to ten percent of cancers are not identified on mammography. A negative report may reinforce clinical impression. Adenosis and dense breasts may obscure an underlying neoplasm. False positive reports average 6 to 10%. Patient will receive a letter notifying them of these results.
== END ==
PROVIDERS: PCP Nurse Practitioner Adult Health; Visit Provider Nurse Practitioner Adult Health
DX: Z12.31 Encounter for screening mammogram for malignant neoplasm of breast (principal); R92.8 Other abnormal and inconclusive findings on diagnostic imaging of breast
CPT/HCPCS: 77063; 77067

== ENCOUNTER → 2022-01-13 02:33 | Outpatient (CLI) | payer MEDICAID, SELFPAY ==
--- NOTE | 2022-01-13 09:45 | DI.MAMMO_ITS ---
Exam(s) US BREAST LT COMPLETE US BREAST RT COMPLETE MG MAMMO SCREEN CALL BACK BI EXAM: MG MAMMO SCREEN CALL BACK BI and U/S breast bilateral complete CLINICAL HISTORY: F/U ABNL MAMMO, DENSE BILATERAL FIBROGLANDULAR TISSUE. TECHNIQUE: Craniocaudal and mediolateral oblique Full Field Digital Mammography views of the bilater al breast with Computer Aided Diagnosis followed by Tomosynthesis and bilateral breast ultrasound. COMPARISON: Comparison is made with prior examinations. FINDINGS: Mammography/Tomosynthesis: Masses/Architectural Distortion: None seen. Microcalcifictions: No suspicious pleomorphic-type are seen. Punctate grouping of calcifications are again seen in the lower inner quadrant of the left breast. No associated soft tissue mass or archite ctural distortion is present. Skin Thickening/Nipple Retraction: None. Bilateral breast US: Echotexture: Normal appearance of the glandular tissue. Shadowing: No suspicious foci. Cyst: In the right breast, 2 cysts are seen. The 1st measures 0.5 x 0.3 x 0.5 cm and is located at t he 8 o'clock position 2 cm from the nipple. The 2nd cyst is seen at the 2 o'clock position 2 cm from the nipple. It measures 0.3 x 0.2 x 0.3 cm. Solid lesions: None seen. Ductal dilation: None. IMPRESSION: 1. No evidence of malignancy is noted. 2. A six-month follow-up left mammogram is requested for re-evaluation of the microcalcifications. 3. The findings were discussed with the patient on the date of the examination. BI-RADS Category 3 - 6 month - Probably Benign Finding: Recommend follow-up imaging in 6 months Breast Density - Category C - Heterogeneously dense Breast density Category C or D implies that the patient has dense breast tissue. Dense breast tissue can make it harder to find cancer on a mammogram. Dense breast tissue is also associated with an incr eased risk of breast cancer. This information about the result of the mammogram report was provided to the patient to raise their awareness. Use this report when you speak with the patient about their risks for breast cancer, which includes their family history. At that time, you may recommend additional screening tests (Ultrasoun d or MRI) as these tests may add significant information. A negative radiographic report should not delay biopsy if a dominant or clinically suspicious mass is present. Up to ten percent of cancers are not identified on mammography. A negative report may reinforce clinical impression. Adenosis and dense breasts may obscure an underlying neoplasm. False positive reports average 6 to 10%. Patient will receive a letter notifying them of these results.
== END ==
PROVIDERS: PCP Nurse Practitioner Adult Health; Visit Provider Nurse Practitioner Adult Health
DX: Z12.31 Encounter for screening mammogram for malignant neoplasm of breast (principal); R92.8 Other abnormal and inconclusive findings on diagnostic imaging of breast; N60.11 Diffuse cystic mastopathy of right breast; N63.24 Unspecified lump in the left breast, lower inner quadrant
CPT/HCPCS: 76642; 77063; 77067

== ENCOUNTER 2022-07-19 13:40 | Emergency (ER) | payer MEDICAID, SELFPAY ==
[2022-07-19] VITALS (19 sets, daily range): BP systolic 109; BP diastolic 83; PULSE 92–110; RESP 13–25; TEMP 36.6; O2SAT 81–100
--- NOTE | 2022-07-19 13:45 | RT.EKG_ITS ---
APPROVED REPORT Exam: Resting ECG Reason for Exam: chest pain Patient Location: E HR:90 bpm ECG Measurements Heart Rate 90 AXIS NV 128 P 66 QRSd 81 QRS 82 QT 368 T 15 QTc 450 Conclusion Sinus rhythm...normal P axis, V-rate 60- 99 Probable left atrial enlargement...P >50mS, <-0.10mV V1 Physician: no stemi, unchanged from prior ekg on 06/24/14
[2022-07-19 14:25] LABS: Abs Immature Grans 0.05 10^3/uL (0.0-0.06); Absolute Basophil Count 0.04 10^3/uL (0.0-0.2); Absolute Eosinophil Count 0.04 10^3/uL (0.0-0.7); Absolute Lymphocyte Count 0.22 10^3/uL (1.2-3.4); Absolute Monocyte Count 0.62 10^3/uL (0.1-0.8); Absolute Neutrophil Count 5.78 10^3/uL (1.2-6.7); Basophils % 0.6; Eosinophils % 0.6; HGB 13.8 g/dL (11.2-15.7); Immature Grans % 0.7; Lymphocytes % 3.3; MCH 31.7 pg (27.0-33.0); MCHC 34.5 % (32.0-36.0); MCV 92 fL (80-95); MPV 9.1 fL (8.0-11.0); Monocytes % 9.2; Neutrophils % 85.6; Platelet Count 391 10^3/uL (130-400); RBC 4.35 10^6/uL (3.93-5.22); RDW 12.6 % (11.7-14.6); RDW-SD 42.7 fL; WBC 6.75 10^3/uL (4.4-10.8)
[2022-07-19] MEDS: Ketorolac 15 MG/ML VIAL IVP (14:30)
[2022-07-19] MEDS: LORazepam 2 MG/ML VIAL 0.5 MG IVP ×2 (14:30→19:12)
[2022-07-19] MEDS: Ondansetron 4 MG/2 ML VIAL IVP (14:30)
[2022-07-19] MEDS: Normal Saline 1,000 ML 1000 ML IV (14:31)
[2022-07-19] MEDS: Normal Saline Flush 10 ML SYR IVP (14:31)
[2022-07-19 14:51] LABS: ALT 29 U/L (14-59); AST 17 U/L (15-37); Albumin 3.9 g/dL (3.4-5.0); Alkaline Phosphatase 65 U/L (46-116); Anion Gap 8.8 mmol/L (3-11); BUN 8 mg/dL (7-18); Bilirubin, Total 0.8 mg/dL (0.2-1.0); CO2 26.2 mmol/L (21.0-32.0); CREATININE 1.1 mg/dL (0.55-1.02); Chloride 99 mmol/L (98-107); Estimated GFR 61.98 (mL/min/1.73m2); Glucose 111 mg/dL (74-106); Lipase 66 U/L (73-393); Magnesium 1.6 mg/dL (1.8-2.4); Potassium 3.8 mmol/L (3.5-5.1); Sodium 134 mmol/L (136-145); Total Protein 7.6 g/dL (6.4-8.2); Troponin I < 50 ng/L (<or=60)
[2022-07-19 14:52] LABS: ETHANOL BLOOD < 3.0 mg/dL (<10)
[2022-07-19 14:57] LABS: Clarity Cloudy (Clear); Specific Gravity 1.021 (1.005-1.025)
[2022-07-19 14:58] LABS: Bilirubin Color Interference (Negative); Blood Color Interference (Negative); Glucose Color Interference mg/dL (Negative); Ketones Color Interference mg/dL (Negative); Leukocyte Esterase Color Interference (Negative); Nitrite Color Interference (Negative); Urobilinogen Color Interference EU/dL (Up TO 0.2)
[2022-07-19 14:59] LABS: Bacteria Rare HPF (Negative); C & S Indicated? Yes; Casts Negative LPF (Negative); Crystals Negative HPF (Negative); Epithelial Cells Rare HPF (Negative); Mucus Negative (Negative); RBC >50 HPF (0-2)
--- NOTE | 2022-07-19 15:11 | ED.GENADUL_ITS ---
Discharge Plan Disposition Patient Disposition: Home Condition: Stable Discharge Details Clinical Impression: COVID-19, Nausea & vomiting Primary Care Provider: Kymberly Sandoval ED Provider: Chen Newberry Home Meds and New Rx's Prescriptions: Continued amitriptyline 10 mg tablet 10 mg PO QHS PRN albuterol sulfate [ProAir HFA] 90 mcg/actuation HFA aerosol inhaler 2 puff Inhalation Q4H PRN Qty: 1 1RF Rx Instructions: DISPENSE WITH SPACER pregabalin [Lyrica] 25 mg capsule See Rx Instructions PO DAILY MDD 75mg/24h Qty: 180 1RF Rx Instructions: 25mg AM, 50mg PM OR 25mg 3x/d for upper extremity nerve pain clindamycin phosphate 1 % lotion 1 applic topical DAILY PRN (Reason: folliculitis s/p hair removal) Qty: 60 0RF Rx Instructions: To treat folliculitis--use 1-2 times after hair removal sertraline 50 mg tablet 25 mg PO DAILY MDD 50mg/24h Rx Instructions: Start with 1/2 tab daily for 6 days, then may increase to 50mg No Action ondansetron 4 mg tablet,disintegrating 4 mg PO Q6H PRN (Reason: nausea and vomiting) Qty: 20 0RF Discharge Instructions Instructions: Acute Nausea and Vomiting (ED), Viral Syndrome (ED) Additional Instructions: Take Zofran as needed for nausea and vomiting Begin your paxlovid tomorrow if you are able to tolerate p.o. Regular fluids [place] diet tomorrow as tolerated, bananas, rice, applesauce, toast Continue to take ibuprofen and Tylenol for your pain and fever Return earlier should you have new or worsening complaints Discharge Data Discharge Date/Time-TO BE ENTERED AT DEPARTURE: 07/19/22 19:56 Medical Decision Making <Rafiq Montano NP - Last Filed: 07/22/22 14:07> Patient presenting to the emergency department for chief complaint of abdominal and back pain with nausea and vomiting. She states this started at 1 AM with some back and abdominal pain and then when pain got worse she started vomiting. She does state allover body aches, fever and chills with episode of pain. And some sore throat. Patient does state that she has felt similar to this in the past when she has had COVID.. She currently is having her menstrual cycle. Physical exam is difficult due to any sort of exam seems to exacerbate patient's pain making it hard to differentiate. Exam is overall unremarkable with soft abdomen patient reporting diffuse tenderness but no guarding or firm abdomen is noted, normal active bowel sounds. Difficult to differentiate CVA tenderness versus paraspinal tenderness given patient's diffuse pain. We will plan on checking labs including COVID along with urinalysis. Pending results we will give patient fluids, ketorolac, and little bit of Ativan due to patient's heightened anxiety. Please review physician interpretation for full interpretation of EKG but EKG on my review appears to show sinus rhythm with no acute findings to suggest STEMI. Review of labs shows a unremarkable CBC, CMP shows slightly low sodium of 134, creatinine of 1.1, glucose is 111, slightly low mag at 1.6. Will give oral repletion for magnesium, troponin is negative and lipase is also unremarkable at 66. There is a gross amount of blood in urine which is consistent with patient being on menses but it is also considered potential for kidney stone given flank and back pain belly pain with nausea vomiting secondary to pain. Viral pathogen panel did show positive for COVID negative for influenza and RSV. Did discuss with patient consideration of monoclonal antibodies or antivirals given that she is unvaccinated. After full discussion patient is agreeable to Paxlovid. Patient did state improvement of nausea so will recommend discharge with Zofran. <HAYDEN Wynn - Last Filed: 07/19/22 22:12> Patient presenting to the emergency department for chief complaint of abdominal and back pain with nausea and vomiting. She states this started at 1 AM with some back and abdominal pain and then when pain got worse she started vomiting. She does state allover body aches, fever and chills with episode of pain. And some sore throat. Patient does state that she has felt similar to this in the past when she has had COVID.. She currently is having her menstrual cycle. Physical exam is difficult due to any sort of exam seems to exacerbate patient's pain making it hard to differentiate. Exam is overall unremarkable with soft abdomen patient reporting diffuse tenderness but no guarding or firm abdomen is noted, normal active bowel sounds. Difficult to differentiate CVA tenderness versus paraspinal tenderness given patient's diffuse pain. We will plan on checking labs including COVID along with urinalysis. Pending results we will give patient fluids, ketorolac, and little bit of Ativan due to patient's heightened anxiety. Please review physician interpretation for full interpretation of EKG but EKG on my review appears to show sinus rhythm with no acute findings to suggest STEMI. Review of labs shows a unremarkable CBC, CMP shows slightly low sodium of 134, creatinine of 1.1, glucose is 111, slightly low mag at 1.6. Will give oral repletion for magnesium, troponin is negative and lipase is also unremarkable at 66. There is a gross amount of blood in urine which is consistent with patient being on menses but it is also considered potential for kidney stone given flank and back pain belly pain with nausea vomiting secondary to pain. Viral pathogen panel did show positive for COVID negative for influenza and RSV. Did discuss with patient consideration of monoclonal antibodies or antivirals given that she is unvaccinated. After full discussion patient is agreeable to Paxlovid. Patient did state improvement of nausea so will recommend discharge with Zofran. LB:1600 care accepted in transfer, possible evidence of enteritis on CT scan without additional acute abnormality Red blood cells in urine likely secondary to menses Given antiemetics for home Paxlovid for home Patient made aware regarding her COVID-positive status and discharged home in stable condition with stable vitals symptomatically improved Sign Out No HPI <Rafiq Montano NP - Last Filed: 07/22/22 14:07> General Mode of arrival: ambulatory . Date/Time Provider Initiated Documentation: 07/19/22 13:55 . Limitations to Documentation: no limitations . Information obtained by: patient and RN notes reviewed . History of Present Illness 46 year old F presents to the emergency department with the chief complaint of Abdominal pain and back pain with nausea and vomiting, described as moderate and severe, with intensity rated at 10. Quality is described as aching, and is localized to the abdomen. Patient started experiencing this hour(s) (12) and it has been constant. No relieving factors improve symptom(s), No exacerbating factors reported . Patient notes fever/chills, loss of appetite, malaise and nausea/vomiting. Patient did receive the following treatments prior to arrival, none Related Data Home Medications Medication Instructions Recorded Confirmed albuterol sulfate 90 mcg/actuation 2 puff inhalation Q4H PRN 08/12/21 07/19/22 aerosol inhaler (ProAir HFA) bronchospasm ##1 clindamycin phosphate 1 % lotion 1 applic topical DAILY PRN 09/24/21 07/19/22 folliculitis s/p hair removal #60 mL amitriptyline 10 mg tablet 10 mg PO QHS PRN 12/01/21 07/19/22 pregabalin 25 mg capsule (Lyrica) See Rx Instructions PO DAILY #180 05/16/22 1 09/18/21 caps sertraline 50 mg tablet 25 mg PO DAILY 07/19/22 07/19/22 ondansetron 4 mg disintegrating 4 mg PO Q6H PRN nausea and 07/22/22 07/22/22 tablet vomiting #20 tabs Previous Rx's Medication Instructions Recorded albuterol sulfate 90 mcg/actuation 2 puff inhalation Q4H PRN 08/12/21 aerosol inhaler (ProAir HFA) bronchospasm ##1 clindamycin phosphate 1 % lotion 1 applic topical DAILY PRN 09/24/21 folliculitis s/p hair removal #60 mL pregabalin 25 mg capsule (Lyrica) See Rx Instructions PO DAILY #180 05/16/22 caps ondansetron 4 mg disintegrating 4 mg PO Q6H PRN nausea and 07/22/22 tablet vomiting #20 tabs Allergies Allergy/AdvReac Type Severity Reaction Status Date / Time lamotrigine Allergy Severe Skin Rash Verified 07/19/22 13:58 Penicillins Allergy Unknown Hives Verified 07/19/22 13:58 General Stated Complaint: Nausea/Vomit/Diar BRIDGET: 3 Review of Systems <Rafiq Montano NP - Last Filed: 07/22/22 14:07> Constitutional Constitutional: Reports chills, Reports fever(s), Denies headache(s), Reports malaise and Reports poor appetite ENT Ears, Nose, Mouth, and Throat: Denies headache(s) Cardiovascular Cardiovascular: Denies chest pain, Denies syncope and Reports dyspnea Respiratory Respiratory: Reports cough and Reports dyspnea Gastrointestinal Gastrointestinal: Reports as per HPI, Reports abdominal pain, Denies diarrhea, Reports nausea and Reports vomiting Genitourinary Genitourinary: Reports other (Currently on menses) Musculoskeletal Musculoskeletal: Reports myalgias Integumentary/Breasts Skin/Breast: Denies rash Neurologic Neurologic: Denies syncope and Denies headache(s) PFSH <Rafiq Montano NP - Last Filed: 07/22/22 14:07> All Active Problems (Updated 07/19/22 @ 18:59 by HAYDEN Wynn) COVID-19 (Acute) Nausea & vomiting (Acute) Stressful life events affecting family and household (Acute ~04/2022) Resumption of Sertraline Paresthesia of right upper extremity (Acute) Cervical spondylosis (Acute) Chronic right shoulder pain (Acute) h/o multiple surgeries [facility] including R rotator cuff repair; referred to Ortho 04/2020 to revisit Localized primary carpometacarpal osteoarthrosis (Acute ~2021) [facility] DJD Category 3 mammography result with short follow-up interval suggested for probably benign finding (Acute ~12/2021) L breast microcalcifications; [facility] [place] 2[place] read agrees cat 3 Tobacco use disorder (Chronic) HPV test positive (Acute ~11/2020) Repeat pap/HPV 2021-->11/2021 normal/NEG-->next in 2024 (3y) Medical History Closed fracture of head of metacarpal COVID (~07/2021) Received [facility] Cubital tunnel syndrome on right Dental infection Depression Diverticulosis (~10/2021) On colonoscopy Fall down stairs Folliculitis Face s/p hair removal; Clinda topical RX Gastrointestinal complaints Hyperplastic polyp of sigmoid colon (~10/2021) Laceration of right index finger without foreign body 09/22/21 [facility] [place] Rotator cuff tear, right Scapulothoracic bursitis of right shoulder SLAP lesion of right shoulder Sprain of forearm, right Sprain of hand, right Stress incontinence Tendonitis of long head of biceps brachii of right shoulder Surgical History H/O colonoscopy (~10/25/21) H/O elbow surgery H/O shoulder surgery R rotator cuff repair History of carpal tunnel release R Ligation of fallopian tube Family History Father Diabetes Sister Personal history of malignant neoplasm Other Alcohol abuse Social History Smoking/Tobacco Use Status: Current every day Tobacco Type: cigarettes Quit status: considering quitting Smoking risk assessment performed?: Yes Alcohol Intake: current Alcohol Intake frequency: holidays/special occasions only Drug use: Daily Substance use type: marijuana Details: Last use was 10/24/21. Household members: significant other Housing: apartment Communication Needs: Corrective Lenses Do you need help understanding health information?: Never Pets and animals: Yes (2) Pets and animals: dog(s) Current gender identity: female What is your relationship status?: living with partner How often do you talk on the phone with friends or family?: three or more times per week How often do you get together with friends or relatives?: three or more times per week How often do you attend mosque or confucianism services?: 1-3 times per year Do you belong to any clubs or organized social groups?: no Panel score (0-1 are the most socially isolated patients): 2 What type of physical activity do you participate in: none [place]/Faith: [employer] Special ad[place] needs: No Seatbelt use: sometimes Drive intox or ride w/intox cat driver: No Do you feel safe at home: Yes Do you feel safe in your relationship?: Yes Exam <Rafiq Montano NP - Last Filed: 07/22/22 14:07> Const General: cooperative Orientation: alert, awake and oriented x3 Resp Effort & Inspection: normal respiratory effort and able to speak in complete sentences Auscultation: clear to auscultation bilaterally Cardio Rate: regular rate Rhythm: regular rhythm Heart Sounds: S1 normal and S2 normal GI Inspection: normal to inspection Palpation: soft, no hepatosplenomegaly, not firm, no guarding, no masses, no pulsatile masses, not rigid, no splenomegaly and tender (difuse non focal ) Auscultation: normal bowel sounds Back/Spine/Pelvis Back: CVA tenderness Thoracic/Lumbar Spine: paraspinal tenderness, No thoracic spinal tenderness and No lumbar spinal tenderness Neuro General: patient alert, patient awake, patient oriented x3, gait normal and moves all extremities Course <Rafiq Montano NP - Last Filed: 07/22/22 14:07> Vital Signs Vital signs: Vital Signs Temperature 36.6 C 07/19/22 13:44 Pulse 107 H 07/19/22 13:44 Respiratory Rate 18 07/19/22 13:44 Blood Pressure 109/83 07/19/22 13:44 Pulse Oximetry 99 07/19/22 13:44 Temperature 36.6 C 07/19/22 13:44 Temperature Source Tympanic 07/19/22 13:44 Pulse 107 H 07/19/22 13:44 Respiratory Rate 18 07/19/22 13:44 Respiratory Effort 07/19/22 13:46 Blood Pressure 109/83 07/19/22 13:44 Blood Pressure Position Supine 07/19/22 13:44 Pulse Oximetry 99 07/19/22 13:44 Oxygen Delivery Method Room Air 07/19/22 13:44 Oxygen Flow Rate 0 07/19/22 13:44 Pain Level 8 07/19/22 13:44 Lab/Test Results Lab/Test Results: 07/19/22 14:30 Urine - Reflex from Ua Urine Culture - Pending Laboratory Tests Range/Units 07/19/22 07/19/22 07/19/22 14:15 14:15 14:30 WBC (4.4-10.8) 10^3/uL 6.75 RBC (3.93-5.22) 10^6/uL 4.35 Hgb (11.2-15.7) g/dL 13.8 Hct (36.0-46.0) % 40.0 MCV (80-95) fL 92 MCH (27.0-33.0) pg 31.7 MCHC (32.0-36.0) % 34.5 RDW (11.7-14.6) % 12.6 Plt Count (130-400) 10^3/uL 391 MPV (8.0-11.0) fL 9.1 Immature Gran % 0.7 Neutrophils % 85.6 Lymphocytes % 3.3 Monocytes % 9.2 Eosinophils % 0.6 Basophils % 0.6 Nucleated RBC % (0.0-0.3) % 0.0 Absolute Neutrophils (1.2-6.7) 10^3/uL 5.78 Absolute Lymphocytes (1.2-3.4) 10^3/uL 0.22 L Absolute Monocytes (0.1-0.8) 10^3/uL 0.62 Absolute Eosinophils (0.0-0.7) 10^3/uL 0.04 Absolute Basophils (0.0-0.2) 10^3/uL 0.04 Sodium (136-145) mmol/L 134 L Potassium (3.5-5.1) mmol/L 3.8 Chloride (98-107) mmol/L 99 Carbon Dioxide (21.0-32.0) mmol/L 26.2 Anion Gap (3-11) mmol/L 8.8 BUN (7-18) mg/dL 8 Creatinine (0.55-1.02) mg/dL 1.1 H Est GFR (CKD-EPI 2020) (mL/min/1.73m2) 61.98 Glucose (74-106) mg/dL 111 H Calcium (8.5-10.1) mg/dL 9.0 Magnesium (1.8-2.4) mg/dL 1.6 L Total Bilirubin (0.2-1.0) mg/dL 0.8 AST (15-37) U/L 17 ALT (14-59) U/L 29 Alkaline Phosphatase (46-116) U/L 65 Troponin I (<or=60) ng/L < 50 Total Protein (6.4-8.2) g/dL 7.6 Albumin (3.4-5.0) g/dL 3.9 Lipase (73-393) U/L 66 Urine Color (Yellow) Red Urine Clarity (Clear) Cloudy Urine pH (5-8) Ur Specific Brady (1.005-1.025) 1.021 Urine Protein (Negative) mg/dL Color Interference Urine Ketones (Negative) mg/dL Color Interference Urine Blood (Negative) Color Interference Urine Nitrite (Negative) Color Interference Urine Bilirubin (Negative) Color Interference Urine Urobilinogen (Up TO 0.2) EU/dL Color Interference Ur Leukocyte Esterase (Negative) Color Interference Urine RBC (0-2) HPF >50 H Urine WBC (0-5) HPF 5-10 Ur Epithelial Cells (Negative) HPF Rare Urine Crystals (Negative) HPF Negative Urine Bacteria (Negative) HPF Rare Urine Casts (Negative) LPF Negative Urine Mucus (Negative) Negative Ur Culture Indicated? Yes Urine Glucose (Negative) mg/dL Color Interference Ethyl Alcohol (<10) mg/dL < 3.0 Sign Out <Rafiq Montano NP - Last Filed: 07/22/22 14:07> Sign Out Data: Sign Out Comment: Patient pending review of CT imaging for rule out of renal calculi or other intra-abdominal pathology. Patient is agreeable to receiving Paxlovid on outpatient basis for her acute COVID and not being vaccinated along with ODT Zofran for nausea. If no CT imaging findings are found patient can be discharged with diagnosis of acute COVID. Last updated by Rafiq Montano NP at 07/19/22 15:45 PAWSS <Rafiq Montano NP - Last Filed: 07/22/22 14:07> Have you Been Recently Intoxicated or Drunk Within the Last 30 days?: No Have you Ever Experienced Previous Episodes of Alcohol Withdrawal?: No Have you ever Experienced Withdrawal Seizures?: No Have you ever Experienced Delirium Tremens(DT)s?: No Have you ever undergone Alcohol Rehabilitation Treatment (i.e, inpt ot outpatient treatment programs)?: No Have you ever Experienced Blackouts?: No Have you ever Combined Alcohol with other Downers within the last 90 days?: No Have you ever Combined Alcohol with any other Substance of Abuse during the last 90 days?: No Positive Blood Alcohol level on Presentation? [PCS.BAL]: No Evidence of Increased Autonomic Activity (i.e. HR>120, tremor, sweating, agitation, nausea)?: No Result: 0 <HAYDEN Wynn - Last Filed: 07/19/22 22:12> Result: 0
[2022-07-19 15:13] LABS: Influenza A PCR Negative (Negative); Influenza B PCR Negative (Negative); RSV PCR Negative (Negative)
[2022-07-19 15:15] LABS: COVID-19 PCR Positive (Negative)
--- NOTE | 2022-07-19 15:15 | DI.CT_ITS ---
Exam(s) CT RENAL COLIC WO EXAM: CT RENAL COLIC WO CLINICAL HISTORY: back and abd pain. TECHNIQUE: Imaging Protocol: Axial computed tomography images with coronal and sagittal reformatted images were created and reviewed CONTRAST MATERIAL: Intravenous: none Oral: None COMPARISON: CT CT CHEST PE ABD PELVIS W from 08/15/2021 FINDINGS: VISUALIZED LUNG BASES: Mild increased markings both lung bases. No pleural effusions.. ABDOMEN: There is no ascites. LIVER: There few subtle sub cm hypodensities in the right hepatic lobe which have benign appearance p robably represent small hemangiomas or cysts. GALLBLADDER/BILIARY: No obvious gallbladder pathology. CBD is not dilated. PANCREAS: No evidence of pancreatic mass nor dilatation of the pancreatic duct. SPLEEN: Spleen is not enlarged. No obvious intrasplenic lesions. ADRENALS: There are no significant adrenal masses. KIDNEYS:No cysts evident. No solid renal masses. No calculi nor hydronephrosis. . ABDOMINAL AORTA: Abdominal aorta is not enlarged. LYMPH NODES: There is no retroperitoneal nor paraaortic adenopathy. ABDOMINAL WALL: No evidence of significant anterior abdominal wall nor inguinal hernia. GI: There is no evidence of bowel obstruction, free air, nor abscess. PELVIS: LYMPH NODES: There is no intrapelvic nor inguinal adenopathy. GI: No evidence of appendicitis.There are sigmoid diverticuli but no evidence of acute diverticulitis . No free fluid. URINARY BLADDER: No calculi nor obvious masses evident REPRODUCTIVE: Uterus and adnexal regions unremarkable. No extraovarian adnexal masses. No free flui d. OSSEOUS: No significant osseous lesions. No fractures. IMPRESSION: 1. Sigmoid diverticulosis but no evidence acute diverticulitis. Also no evidence of appendicitis. 2. No bowel obstruction. No free air. No abscess. No ascites. 3. Mild increased markings both lung bases. No pleural effusions. RADIATION DOSE DELIVERED: 784.23mGy.cm Total DLP DATA REPOSITORY: All CT scans at this facility are submitted to the National Radiology Data Registry (NRDR) Dose Index Registry (DIR) with the [employer] (ACR). RADIATION OPTIMIZATION: All CT scans at this facility use at least one of these dose optimization te chniques: automated exposure control; mA and/or kV adjustment per patient size (includes targeted exa ms where dose is matched to clinical indication); or iterative reconstruction.
--- NOTE | 2022-07-19 18:32 | DI.VRAD_ITS ---
PROCEDURE INFORMATION: Exam: CT Abdomen And Pelvis Without Contrast Exam date and time: 07/19/2022 6:19 PM Age: 46 years old Clinical indication: Abdominal pain and other: Back; Patient HX: Back and abd pain TECHNIQUE: Imaging protocol: Computed tomography of the abdomen and pelvis without contrast. COMPARISON: CT CHEST PE ABD PELVIS W 08/15/2021 2:38 AM FINDINGS: Mild basilar subsegmental atelectasis versus scarring Liver: Faint cyst in the right lobe Gallbladder and bile ducts: Normal. No calcified stones. No ductal dilation. Pancreas: Normal. No ductal dilation. Spleen: Normal. No splenomegaly. Adrenal glands: Normal. No mass. Kidneys and ureters: Normal. No hydronephrosis. Stomach and bowel: Colonic diverticulosis. No obstruction. Question mild mucosal thickening. Appendix: No evidence of appendicitis. Intraperitoneal space: Unremarkable. No free air. No significant fluid collection. Vasculature: Unremarkable. No abdominal aortic aneurysm. Lymph nodes: Unremarkable. No enlarged lymph nodes. Urinary bladder: Unremarkable as visualized. Reproductive: Unremarkable as visualized. Bones/joints: Unremarkable. No acute fracture. Soft tissues: Unremarkable. IMPRESSION: Colonic diverticulosis without diverticulitis Nonspecific nonobstructed bowel gas pattern. Correlate for mild enteritis Dictated and Authenticated by: Dillon Foreman MD. Ordering:ALEX Conroy MD
[2022-07-19] MEDS: ACETAMINOPHEN 1,000 MG/100 ML BTL 100 MG (19:12)
[2022-07-19] MEDS: Prochlorperazine 10 MG/2 ML VIAL IVP (19:12)
[2022-07-19] MEDS: Ondansetron O.D.T. 4 MG TABEF, 3 TABS/BTL 12 MG (19:34)
== END 2022-07-19 19:56 | disposition home or self-care (01) ==
PROVIDERS: Nurse Practitioner Family; Emergency Provider Physician Assistant; PCP Nurse Practitioner Adult Health
DX: U07.1 COVID-19 (principal); E87.1 Hypo-osmolality and hyponatremia; Z86.16 Personal history of COVID-19
CPT/HCPCS: 36415; 80053; 81025; 83690; 87637; 93005; 96361; 96374; 96375; 96376; 99284; 74176; 80320; 81003; 81015; 83735; 84484; 85025; 87086; 93010; J0131; J0780; J1885; J2060; J2405; J3490

== ENCOUNTER → 2022-07-27 03:08 | Outpatient (CLI) | payer MEDICAID, SELFPAY ==
--- NOTE | 2022-07-27 08:15 | DI.MAMMO_ITS ---
Exam(s) MG MAMMO DIAGNOSTIC UNI US BREAST LT LIMITED EXAM: US BREAST LT LIMITED CLINICAL HISTORY: 6 MONTH F/U LEFT BREAST MICROCALICIFICATIONS TECHNIQUE: Ultrasound performed using standard protocol. COMPARISON: No exams were available for comparison FINDINGS: Routine mammographic views and magnification spot compression views of the left breast were obtained and are interpreted in conjunction with left breast ultrasound. A previously described group of micr ocalcifications of the lower-inner quadrant of the left breast seen on mammogram of December 2021 are agai n seen, these are again noted to be predominantly punctate or rounded, however these appear to have i ncreased in number since the prior examination and there is some question of pleomorphic forms on the current study. No other change in appearance of the left breast is seen. Breast ultrasound of the lower-inner quadrant of the breast shows no discrete mass or visible calcifi cation. Because of the interval change in appearance and the number of microcalcifications in excess of 50, b iopsy is recommended. IMPRESSION: BI-RADS Cat 4 - Suspicious Abnormality: Biopsy should be considered Breast Density - Category C - Heterogeneously dense DATA REPOSITORY:
== END ==
PROVIDERS: PCP Nurse Practitioner Adult Health; Visit Provider Nurse Practitioner Adult Health
DX: R92.8 Other abnormal and inconclusive findings on diagnostic imaging of breast (principal); N63.24 Unspecified lump in the left breast, lower inner quadrant
CPT/HCPCS: 76642; 77061; 77065; G0279

== ENCOUNTER 2022-11-10 14:14 | Outpatient (CLI) | payer MEDICAID, SELFPAY | END 2022-11-10 14:15 | disposition home or self-care (01) | LOC: DI.KIM 14:14 | PROVIDERS: PCP Nurse Practitioner Adult Health; Visit Provider Nurse Practitioner Adult Health | CPT/HCPCS: 93010 ==

== ENCOUNTER 2023-04-26 13:09 | Outpatient (CLI) | payer MEDICAID, SELFPAY ==
[2023-04-26 13:01] LABS: Anion Gap 10.5 mmol/L (3-11); BUN 9 mg/dL (7-18); CO2 27.5 mmol/L (21.0-32.0); CREATININE 0.9 mg/dL (0.55-1.02); Calcium 9.4 mg/dL (8.5-10.1); Chloride 100 mmol/L (98-107); Estimated GFR 78.37 (mL/min/1.73m2); Glucose 98 mg/dL (74-106); Potassium 3.8 mmol/L (3.5-5.1); Sodium 138 mmol/L (136-145); TSH (W/Ref FT4) 1.92 uIU/mL (0.36-3.74)
== END 2023-04-26 13:10 | disposition home or self-care (01) ==
LOC: LBO 13:10
PROVIDERS: PCP Nurse Practitioner Adult Health; Visit Provider Nurse Practitioner Adult Health
DX: E87.1 Hypo-osmolality and hyponatremia (principal); F32.89 Other specified depressive episodes
CPT/HCPCS: 36415; 80048; 84443

== ENCOUNTER → 2023-05-09 03:00 | Outpatient (CLI) | payer MEDICAID, SELFPAY ==
--- NOTE | 2023-05-09 08:00 | DI.RAD_ITS ---
Exam(s) XR HIP RT COMPLETE AP PELVIS EXAM: XR HIP RT COMPLETE AP PELVIS CLINICAL HISTORY: assess bony formation; ?OA,acute rt hip pain,[id number]. TECHNIQUE: 2D digital imaging was performed of the right hip. Two images were obtained. AP pelvis a nd lateral right hip views were obtained. COMPARISON: No exams were available for comparison FINDINGS: BONES: No acute fracture is present. No bony destructive lesion is seen. JOINTS: No dislocation present. The joint spaces are well maintained. SOFT TISSUE: Normal. IMPRESSION: No acute fracture or dislocation. DATA REPOSITORY: RADIATION DOSE DELIVERED:
== END ==
PROVIDERS: PCP Nurse Practitioner Adult Health; Visit Provider Nurse Practitioner Adult Health
DX: M25.551 Pain in right hip (principal)
CPT/HCPCS: 73502

== ENCOUNTER → 2023-08-15 01:29 | Outpatient (CLI) | payer MEDICAID, SELFPAY ==
--- NOTE | 2023-08-15 07:45 | DI.US_ITS ---
Exam(s) US BREAST RT LIMITED MG MAMMO DIAGNOSTIC BI EXAM: MG MAMMO DIAGNOSTIC BI CLINICAL HISTORY: r/o suspicious mass, ABNL BREAST BIOPSY, MASTODYNIA RT BREAST, R89.7. COMPARISON: MG MG MAMMO SCREENING from 01/04/2022 US US BREAST LT COMPLETE from 01/13/2022 US US BREAST RT COMPLETE from 01/13/2022 MG MG MAMMO SCREEN CALL BACK BI from 01/13/2022 MG MG MAMMO DIAGNOSTIC UNI from 07/27/2022 US US BREAST LT LIMITED from 07/27/2022 US US BREAST RT LIMITED from 08/15/2023 TECHNIQUE: Craniocaudal and mediolateral oblique Full Field Digital Mammography views of both breast s with Computer Aided Diagnosis followed by Tomosynthesis and right breast ultrasound. FINDINGS: Mammography/Tomosynthesis: Masses: None seen. Architectural Distortion: None seen. Microcalcifications: No suspicious pleomorphic-type are seen. Previously noted calcifications in th e left breast are no longer present. Patient is status post biopsy. Biopsy marker clip seen in poste rior left breast. Skin Thickening/Nipple Retraction: None. Right breast US: Echotexture: Normal appearance of the glandular tissue. Shadowing: No suspicious foci. Cyst: None. Solid lesions: 5 millimeter hypoechoic lesion with central fatty hilum consistent with a an intramamm juanita lymph node located in the 9 o'clock position 4 cm from the nipple. Similar appearing circumscrib ed nodule noted in the 9 o'clock position 4 cm from the nipple, measuring 4 millimeters in diameter. Ductal dilation: None. IMPRESSION: 1. No evidence of malignancy is noted. 2. Unless there is more urgent need, follow-up screening mammography is recommended, as per [employer] guidelines. BI-RADS Category 2 - Benign Findings Breast Density - Category C - Heterogeneously dense Breast density category C or D implies that the patient has dense breast tissue. Dense breast tissue is very common and is not abnormal but dense breast tissue can make it harder to find cancer on a ma mmogram. Also, dense breast tissue may increase their breast cancer risk. This information about the result of the mammogram report was provided to the patient to raise their awareness. Use this report when you speak with the patient about their risks for breast cancer, which includes their family hist ory. At that time, you may recommend for more screening tests (Ultrasound or MRI) as they might be us eful based on their risk. A negative radiographic report should not delay biopsy if a dominant or clinically suspicious mass is present. Up to ten percent of cancers are not identified on mammography. A negative report may reinforce clinical impression. Adenosis and dense breasts may obscure an underlying neoplasm. False positive reports average 6 to 10%. Patient will receive a letter notifying them of these results.
== END ==
PROVIDERS: PCP Nurse Practitioner Adult Health; Visit Provider Nurse Practitioner Adult Health
DX: Z12.31 Encounter for screening mammogram for malignant neoplasm of breast (principal); N64.4 Mastodynia; N63.15 Unspecified lump in the right breast, overlapping quadrants
CPT/HCPCS: 76642; 77062; 77066; G0279

== ENCOUNTER 2024-07-19 11:37 | Outpatient (CLI) | payer MEDICAID, SELFPAY ==
--- NOTE | 2024-07-19 11:43 | DI.RAD_ITS ---
Exam(s) XR CHEST 2V PA LATERAL EXAM: XR CHEST 2V PA LATERAL CLINICAL HISTORY: Rt sided posterior pain, cough, pleurisy-R09.1 TECHNIQUE: 2D digital imaging was performed of the chest. Two images were obtained. PA and lateral views were obtained. COMPARISON: CR XR CHEST 2V PA LATERAL from 09/24/2021 FINDINGS: MEDIASTINUM: Normal. HEART: Normal. PULMONARY VASCULATURE: Normal. LUNGS: Clear. PLEURAL SPACE: No pleural effusion or pneumothorax. BONE:Within normal limits for the patient's age. There is a mild right convex thoracic scoliosis. S liza the prior examination, the patient has undergone an anterior cervical disc fusion. OTHER FINDINGS:Normal. IMPRESSION: No acute pulmonary findings. DATA REPOSITORY: RADIATION DOSE DELIVERED:
== END 2024-07-19 11:57 ==
LOC: DI 11:38
PROVIDERS: PCP Nurse Practitioner Adult Health; Visit Provider Family Medicine
DX: R09.1 Pleurisy (principal)
CPT/HCPCS: 71046

== ENCOUNTER 2024-07-19 11:53 | Outpatient (CLI) | payer MEDICAID, SELFPAY ==
[2024-07-19 11:55] LABS: Abs Immature Grans 0.01 10^3/uL (0.0-0.06); Absolute Basophil Count 0.06 10^3/uL (0.0-0.2); Absolute Eosinophil Count 0.09 10^3/uL (0.0-0.7); Absolute Lymphocyte Count 1.55 10^3/uL (1.2-3.4); Absolute Monocyte Count 0.46 10^3/uL (0.1-0.8); Absolute Neutrophil Count 3.44 10^3/uL (1.2-6.7); Basophils % 1.1 %; Eosinophils % 1.6 %; HGB 13.5 g/dL (11.2-15.7); Immature Grans % 0.2 %; Lymphocytes % 27.6 %; MCH 31.3 pg (27.0-33.0); MCHC 33.8 % (32.0-36.0); MCV 93 fL (80-95); MPV 9.4 fL (8.0-11.0); Monocytes % 8.2 %; Neutrophils % 61.3 %; Platelet Count 375 10^3/uL (130-400); RBC 4.32 10^6/uL (3.93-5.22); RDW 11.9 % (11.7-14.6); RDW-SD 40.6 fL; WBC 5.61 10^3/uL (4.4-10.8)
[2024-07-19 12:52] LABS: D-Dimer 346 ng/mlFEU (<500)
== END 2024-07-19 11:54 | disposition home or self-care (01) ==
LOC: LBO 11:54
PROVIDERS: PCP Nurse Practitioner Adult Health; Visit Provider Family Medicine
DX: R09.1 Pleurisy (principal)
CPT/HCPCS: 36415; 85025; 85379

== ENCOUNTER 2025-03-25 07:55 | Outpatient (CLI) | payer BC, SELFPAY ==
--- NOTE | 2025-03-25 08:00 | DI.MAMMO_ITS ---
Exam(s) MAMMO SCREENING EXAM: MAMMO SCREENING CLINICAL HISTORY: screening, Z12.39 TECHNIQUE: Bilateral full field digital CC and MLO mammographic images were obtained with 3D tomosynthesis and utilizing computer aided detection (CAD). COMPARISON: Comparison is made with prior examinations. FINDINGS: Masses/Architectural Distortion: No suspicious masses or areas of architectural distortion are present. The biopsy clip in the left breast is stable in position. Microcalcifications: No suspicious pleomorphic-type are seen. Skin Thickening/Nipple Retraction: None. IMPRESSION: 1. No significant interval change with no specific features of malignancy noted. 2. Unless there is more urgent need, screening mammography is recommended, as per [employer] guidelines. BI-RADS Category 1 - Negative Breast Density - Category C - The breast are heterogeneously dense, which may obscure small masses. Breast density Category C or D implies that the patient has dense breast tissue. Dense breast tissue can make it harder to find cancer on a mammogram. Dense breast tissue is also associated with an increased risk of breast cancer. This information about the result of the mammogram report was provided to the patient to raise their awareness. Use this report when you speak with the patient about their risks for breast cancer, which includes their family history. At that time, you may recommend additional screening tests (Ultrasound or MRI) as these tests may add significant information. A negative radiographic report should not delay biopsy if a dominant or clinically suspicious mass is present. Up to ten percent of cancers are not identified on mammography. A negative report may reinforce clinical impression. Adenosis and dense breasts may obscure an underlying neoplasm. False positive reports average 6 to 10%. Patient will receive a letter notifying them of these results.
== END 2025-03-25 08:15 ==
PROVIDERS: PCP Nurse Practitioner Adult Health; Visit Provider Nurse Practitioner Adult Health
DX: Z12.31 Encounter for screening mammogram for malignant neoplasm of breast (principal); R92.333 Mammographic heterogeneous density, bilateral breasts
CPT/HCPCS: 77063; 77067